=== PATIENT | female | born 1965 | race Hispanic/Latino ===

== ENCOUNTER 2017-11-20 11:33 | Emergency (ER) | payer OTHER ==
[2017-11-20 12:18] LABS: Urine Blood NEGATIVE (NEG); Urine Glucose NEGATIVE (NEG); Urine Protein NEGATIVE (NEG); Urine pH 5.5 (5.0-7.0)
[2017-11-20 12:31] LABS: Absolute Lymphocytes (CBC) 3.4 K/uL (0.7-4.9); Absolute Monocytes 0.7 K/uL (0.1-1.3); Absolute Neutrophil 5.2 K/uL (1.8-8.0); Basophils % 0.7 % (0-1.3); Eosinophils % 1.8 % (0-4.4); Hematocrit 39.8 % (36.0-45.0); Lymphocytes % 35.8 % (15.3-44.8); MCH 30.6 pg (27.0-35.0); MCV 88.4 fL (80-100); MPV 8.4 fL (7.6-11.3); Monocytes % 7.2 % (3.3-12.3)
[2017-11-20 12:47] LABS: ALT/SGPT 31 U/L (12-78); AST/SGOT 22 U/L (15-37); Albumin 3.4 g/dL (3.4-5.0); Alkaline Phosphatase 107 U/L (45-117); Amylase Level 40 U/L (25-115); BUN Blood Urea Nitrogen 4 mg/dL (7-18); Bicarbonate 28 mmol/L (21-32); Bilirubin Direct 0.2 mg/dL (0-0.2); Bilirubin Total 0.7 mg/dL (0.2-1.0); Glucose Level 170 mg/dL (74-106); Lipase 122 U/L (73-393); Protein, Total 7.1 g/dL (6.4-8.2); Sodium Level 140 mmol/L (136-145)
--- NOTE | 2017-11-20 13:28 | RAD REPORT ---
EXAM DESCRIPTION: CTAbdomen Pelvis W Contrast - 11/20/2017 1:18 pm CLINICAL HISTORY: Abdominal pain. IV ONLY, Left Sided Abdominal Pain COMPARISON: Abdomen Pelvis W Contrast dated 09/06/2016; CT ABD PELVIS W CONTRAST dated 05/15/2008 TECHNIQUE: Biphasic CT imaging of the abdomen and pelvis was performed with 100 ml non-ionic IV cont rast. All CT scans are performed using dose optimization technique as appropriate and may include automated exposure control or mA/KV adjustment according to patient size. FINDINGS: The lung bases are clear.Cholecystectomy clips. The liver, spleen, pancreas, adrenal glands and kidneys are within normal limits. No bowel obstruction, free air, free fluid or abscess. The appendix is normal. No evidence of signi ficant lymphadenopathy. No suspicious bony findings. 25 mm left ovarian follicle noted. IMPRESSION: No acute intra-abdominal or pelvic finding.
[2017-11-20 13:32] LABS: Urine Bacteria >50 /HPF (<20); Urine Culture Reflex Order REFLEXED; Urine RBC <5 /HPF (NONE SEEN)
[2017-11-20] MEDS ORDERED: METOCLOPRAMIDE 10 MG/2mL INJ ONE (14:09)
[2017-11-20] MEDS ORDERED: NA CHLORIDE 0.9% 250 ML ONE (14:09)
--- NOTE | 2017-11-20 14:36 | EDPHYS ---
Physician Documentation [facility] Name: Kirsty Montaño Age: 52 yrs Sex: Female : 1965 Arrival Date: 11/20/2017 Time: 11:36 Bed 19 Private MD: Humberto Green B ED Physician Talib Castro HPI: 11/20 13:14 This 52 yrs old Female presents to ER via Ambulatory with complaints of jmm Abdominal Swelling. 13:14 The patient presents with abdominal pain in the left upper quadrant. Onset: The jmm symptoms/episode began/occurred gradually. The symptoms do not radiate. Associated signs and symptoms: Pertinent positives: diarrhea. This is a 52 year old female with a history of DM, HTN, that presents to the ED with LUQ discomfort beginning after the patient stated she drank a large amount of water. Patient denies vomiting but states that she has ongoing diarrhea she attributes to metformin. Patient denies fever, recent abx use or recent travel. . 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 - Social history:: Smoking status: Patient/guardian denies using tobacco. - Ebola Screening: : Patient negative for fever greater than or equal to 101.5 degrees Fahrenheit, and additional compatible Ebola Virus Disease symptoms Patient denies exposure to infectious person Patient denies travel to an Ebola-affected area in the 21 days before illness onset No symptoms or risks identified at this time. ROS: 13:20 Constitutional: Negative for fever, chills, and weight loss, Cardiovascular: Negative jmm for chest pain, palpitations, and edema, Respiratory: Negative for shortness of breath, cough, wheezing, and pleuritic chest pain. 13:20 Back: Negative for injury and pain, : Negative for injury, bleeding, discharge, and swelling, MS/Extremity: Negative for injury and deformity, Skin: Negative for injury, rash, and discoloration, Neuro: Negative for headache, weakness, numbness, tingling, and seizure. 13:20 Abdomen/GI: Positive for abdominal pain, diarrhea. 13:20 All other systems are negative. Exam: 13:20 Head/Face: atraumatic. Chest/axilla: Normal chest wall appearance and motion. [facility] Cardiovascular: Regular rate and rhythm. No edema appreciated Respiratory: Normal respirations, no respiratory distress appreciated 13:20 Constitutional: The patient appears in no acute distress, alert, awake. 13:20 Abdomen/GI: Inspection: abdomen appears normal, Bowel sounds: normal, Palpation: soft, in the left upper quadrant. 13:20 Back: ROM is normal. 13:20 Musculoskeletal/extremity: ROM: intact in all extremities. 13:20 Skin: Appearance: Color: normal in color. 13:20 Neuro: Orientation: is normal, Mentation: is normal, Memory: is normal. 13:20 Psych: Behavior/mood is pleasant, cooperative. Vital Signs: 11:52 BP 155 / 73; Pulse 77; Resp 16; Temp 98.8(O); Pulse Ox 99% on R/A; Weight 79.83 kg; em Height 5 ft. 5 in. (165.10 cm); Pain 0/10; 13:30 BP 131 / 66; Pulse 73; Resp 16; Pulse Ox 97% on R/A; Pain 0/10; em 14:30 BP 139 / 76; Pulse 73; Resp 18; Pulse Ox 97% on R/A; Pain 0/10; em 11:52 Body Mass Index 29.29 (79.83 kg, 165.10 cm) em MDM: 11:47 Patient medically screened. [facility] 14:28 Data reviewed: vital signs, nurses notes. Counseling: I had a detailed discussion with [facility] the patient and/or guardian regarding: the historical points, exam findings, and any diagnostic results supporting the discharge/admit diagnosis, lab results, radiology results, to return to the emergency department if symptoms worsen or persist or if there are any questions or concerns that arise at home. 14:28 ED course: Due to the patient's history of gastric ulcers, is encouraged to follow up [facility] with GI due to concerns. Patient given return precautions. patient understood and agrees with the plan of care. . 11/20 11:49 Order name: Amylase, Serum; Complete Time: 13:34 [facility] 11/20 11:49 Order name: Basic Metabolic Panel; Complete Time: 13:34 [facility] 11/20 11:49 Order name: CBC with Diff; Complete Time: 13:34 [facility] 11/20 11:49 Order name: Creatinine for Radiology; Complete Time: 13:34 [facility] 11/20 11:49 Order name: Hepatic Function; Complete Time: 13:34 [facility] 11/20 11:49 Order name: Lipase; Complete Time: 13:34 [facility] 11/20 11:49 Order name: Urine Microscopic Only; Complete Time: 13:34 [facility] 11/20 11:50 Order name: Troponin (emerg Dept Use Only); Complete Time: 13:34 [facility] 11/20 12:00 Order name: CT Abd/Pelvis - W/Contrast; Complete Time: 13:34 [facility] 11/20 12:02 Order name: CPK; Complete Time: 13:34 [facility] 11/20 12:15 Order name: Urine Dipstick--Ancillary (enter results) 11/20 12:16 Order name: Urine Dipstick-Ancillary; Complete Time: 13:34 [facility] 11/20 13:34 Order name: Urine Culture [facility] 11/20 11:49 Order name: IV Saline Lock; Complete Time: 12:13 [facility] 11/20 11:49 Order name: Labs collected and sent; Complete Time: 12:14 [facility] 11/20 11:49 Order name: Urine Dipstick-Ancillary (obtain specimen); Complete Time: 12:07 [facility] 11/20 11:50 Order name: EKG - Nurse/Tech; Complete Time: 12:13 [facility] 11/20 13:18 Order name: EKG Electrocardiogram [facility] Administered Medications: 14:16 Drug: Reglan 10 mg Route: IVP; Site: right antecubital; iw 15:12 Follow up: Response: No adverse reaction em 14:16 Drug: NS 0.9% 250 ml Route: IV; Rate: bolus; Site: right antecubital; iw 15:12 Follow up: IV Status: Completed infusion; IV Intake: 250ml em Disposition: 11/20/17 14:35 Discharged to Home. Impression: Other abdominal pain, Urinary tract infection, site not specified. - Condition is Stable. - Discharge Instructions: Abdominal Pain, Adult, Urinary Tract Infection, Adult. - Prescriptions for Cephalexin 500 mg Oral Capsule - take 1 capsule by ORAL route every 12 hours for 10 days; 20 capsule. - Medication Reconciliation Form, Thank You Letter, Antibiotic Education, Prescription Opioid Use, Work release form form. - Follow up: Humberto Green MD; When: 2 - 3 days; Reason: Continuance of care. Addendum: 11/23/2017 10:20 Co-signature as Attending Physician, Talib Castro MD I agree with the assessment and c ramos plan of care. Signatures: Dispatcher [employer] Talib Ashford MD MD cha Mickail, Joel, PA PA dallasm Carlo Bowen, PLASTER APPLICATOR PLASTER APPLICATOR em Elaine Schmitz, AKUA RN iw Corrections: (The following items were deleted from the chart) 11/20 15:24 14:35 11/20/2017 14:35 Discharged to Home. Impression: Other abdominal pain; Urinary em tract infection, site not specified. Condition is Stable. Forms are Medication Reconciliation Form, Thank You Letter, Antibiotic Education, Prescription Opioid Use. Follow up: Humberto Green; When: 2 - 3 days; Reason: Continuance of care. davide
--- NOTE | 2017-11-20 14:36 | ER ---
Nurse's Notes [facility] Name: Kirsty Montaño Age: 52 yrs Sex: Female : 1965 Arrival Date: 11/20/2017 Time: 11:36 Bed 19 Private MD: Humberto Green B Diagnosis: Other abdominal pain;Urinary tract infection, site not specified Presentation: 11/20 11:48 Presenting complaint: Patient states: left sided abdominal swelling that started Thursday em with intermittent pain, + nausea, denies fever, vomiting and diarrhea, currently denies pain. Transition of care: patient was not received from another setting of care. Onset of symptoms was November 14, 2017. Risk Assessment: Do you want to hurt yourself or someone else? Patient reports no desire to harm self or others. Initial Sepsis Screen: Does the patient meet any 2 criteria? No. Patient's initial sepsis screen is negative. Does the patient have a suspected source of infection? No. Patient's initial sepsis screen is negative. Care prior to arrival: None. 11:48 Method Of Arrival: Ambulatory em 11:48 Acuity: ALYCIA 3 iw Triage Assessment: 11:52 General: Appears in no apparent distress. comfortable, Behavior is calm, cooperative. em Pain: Denies pain. GI: Abdomen is round non-distended, Reports nausea, Patient currently denies vomiting. 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 - Social history:: Smoking status: Patient/guardian denies using tobacco. - Ebola Screening: : Patient negative for fever greater than or equal to 101.5 degrees Fahrenheit, and additional compatible Ebola Virus Disease symptoms Patient denies exposure to infectious person Patient denies travel to an Ebola-affected area in the 21 days before illness onset No symptoms or risks identified at this time. Screenin:53 Abuse screen: Denies threats or abuse. Nutritional screening: No deficits noted. em Tuberculosis screening: No symptoms or risk factors identified. Fall Risk None identified. Assessment: 11:50 General: Appears in no apparent distress. comfortable, Behavior is calm, cooperative, em Denies fever. Pain: Denies pain. Neuro: Level of Consciousness is awake, alert, obeys commands, Oriented to person, place, time, situation. Cardiovascular: Capillary refill < 3 seconds Patient's skin is warm and dry. Respiratory: Airway is patent Respiratory effort is even, unlabored, Respiratory pattern is regular, symmetrical. GI: Abdomen is round non-distended, Bowel sounds present X 4 quads. Abd is soft and non tender X 4 quads. Reports bloating, nausea, Patient currently denies diarrhea, vomiting. : Urine is clear. EENT: No signs and/or symptoms were reported regarding the EENT system. Derm: Skin is intact, Skin is pink, warm \T\ dry. Musculoskeletal: Range of motion: intact in all extremities. 12:00 Reassessment: Patient appears in no apparent distress at this time. I agree with above iw assessment by Carlo Bowen LVN. 12:50 Reassessment: Patient appears in no apparent distress at this time. Patient and/or em family updated on plan of care and expected duration. Pain level reassessed. Patient is alert, oriented x 3, equal unlabored respirations, skin warm/dry/pink. Patient denies pain at this time. 13:29 Reassessment: returned from CT, denies pain. em 14:45 Reassessment: Patient appears in no apparent distress at this time. Patient and/or em family updated on plan of care and expected duration. Pain level reassessed. Patient is alert, oriented x 3, equal unlabored respirations, skin warm/dry/pink. warm blanket given. Vital Signs: 11:52 BP 155 / 73; Pulse 77; Resp 16; Temp 98.8(O); Pulse Ox 99% on R/A; Weight 79.83 kg; em Height 5 ft. 5 in. (165.10 cm); Pain 0/10; 13:30 BP 131 / 66; Pulse 73; Resp 16; Pulse Ox 97% on R/A; Pain 0/10; em 14:30 BP 139 / 76; Pulse 73; Resp 18; Pulse Ox 97% on R/A; Pain 0/10; em 11:52 Body Mass Index 29.29 (79.83 kg, 165.10 cm) em ED Course: 11:36 Patient arrived in ED. as 11:36 Humberto Green MD is Private Physician. as 11:42 Ray Romero PA is [facility]. [facility] 11:42 Talib Castro MD is Attending Physician. [facility] 11:47 Carlo Bowen LVN is Primary Nurse. em 11:53 Arm band placed on. em 11:53 Patient has correct armband on for positive identification. Placed in gown. Bed in low em position. Call light in reach. Adult w/ patient. Pulse ox on. NIBP on. 12:08 Triage completed. iw 12:08 Initial lab(s) drawn, by ky, sent to lab. 3 12:18 Inserted saline lock: 20 gauge in right antecubital area, using aseptic technique. 3 Blood collected. 12:23 EKG done, by test tech. reviewed by Ray VALVERDE. at1 13:[address] sw 13:16 Note: PT ADVISED TO WITH HOLD METFORMIN FOR THE NEXT 48 HOURS AFTER IODINE INJECTION sw FOR CAT SCAN. 13:16 CT completed. Patient tolerated procedure well. Patient moved back from CT. sw 13:18 CT Abd/Pelvis - W/Contrast In Process Unspecified. EDMS 14:35 Humberto Green MD is Referral Physician. [facility] 15:20 No provider procedures requiring assistance completed. IV discontinued, intact, em bleeding controlled, No redness/swelling at site. Pressure dressing applied. Administered Medications: 14:16 Drug: Reglan 10 mg Route: IVP; Site: right antecubital; iw 15:12 Follow up: Response: No adverse reaction em 14:16 Drug: NS 0.9% 250 ml Route: IV; Rate: bolus; Site: right antecubital; iw 15:12 Follow up: IV Status: Completed infusion; IV Intake: 250ml em Intake: 15:12 IV: 250ml; Total: 250ml. em Outcome: 14:35 Discharge ordered by MD. jmm 15:20 Discharged to home ambulatory, with family. em 15:20 Condition: good 15:20 Discharge instructions given to patient, family, Instructed on discharge instructions, follow up and referral plans. medication usage, Demonstrated understanding of instructions, follow-up care, medications, Prescriptions given X 1. 15:24 Patient left the ED. em Signatures: Dispatcher [employer] EDMS Ray Romero PA PA jmm Munoz, Edgar, THERMOMETER PRODUCTION WORKER THERMOMETER PRODUCTION WORKER em Robert, Juanis as Elaine Schmitz, AKUA FATIMA iw Amairani crowe, geological drafter EKG Tat1 Lisa Meredith, Cady 3 Corrections: (The following items were deleted from the chart) 13:24 General: Appears in no apparent distress. comfortable, Behavior is calm, em cooperative, Denies fever, em 13:24 Pain: Denies pain. em em 13:24 Neuro: Level of Consciousness is awake, alert, obeys commands, Oriented to em person, place, time, situation, em 13:24 Cardiovascular: Capillary refill < 3 seconds Patient's skin is warm and dry. em em 13:24 Respiratory: Airway is patent Respiratory effort is even, unlabored, Respiratory em pattern is regular, symmetrical, em 13:24 GI: Abdomen is round non-distended, Bowel sounds present X 4 quads. Abd is soft em and non tender X 4 quads. Reports bloating, nausea, Patient currently denies diarrhea, vomiting, em 13:24 : Urine is clear, em em 13:24 EENT: No signs and/or symptoms were reported regarding the EENT system. em em 13:24 Derm: Skin is intact, Skin is pink, warm \T\ dry. em em 13:24 Musculoskeletal: Range of motion: intact in all extremities, em em
[2017-11-20 15:38] VITALS: O2SAT 97
[2017-11-20 15:39] VITALS: TEMP 98.8
[2017-11-20 15:41] VITALS: BP 139/76
--- NOTE | 2017-11-20 18:08 | EKG ---
Test Date: 2017-11-20 Test Time: 12:14:49 Data Entry Email Processor: BRENDA MEASUREMENT RESULTS: Intervals: Rate: 76 IN: 170 QRSD: 86 QT: 408 QTc: 459 [place]: P: 27 IN: 170 QRS: 21 T: 32 INTERPRETIVE STATEMENTS: Normal sinus rhythm Normal ECG Compared to ECG 02/26/2016 19:04:05 Myocardial infarct finding no longer present Electronically Signed On 11-20-17 18:06:49 CDT by Pratik Avila
== END 2017-11-20 15:24 | disposition home or self-care (01) ==
LOC: ER 11:33
DX: R10.9 Unspecified abdominal pain (principal); N39.0 Urinary tract infection, site not specified; E11.9 Type 2 diabetes mellitus without complications; I10 Essential (primary) hypertension; E78.00 Pure hypercholesterolemia, unspecified
CPT/HCPCS: 36415; 74177; 80048; 80076; 81003; 81015; 82150; 82550; 83690; 84484; 85025; 87086; 87088; 93005; 96361; 96365; 96374; 96375; 99284; J2765; Q9967

== ENCOUNTER 2018-05-08 13:11 | Emergency (ER) | payer OTHER ==
--- NOTE | 2018-05-08 14:07 | RAD REPORT ---
EXAM DESCRIPTION: CT - Stone Protocol - 05/08/2018 1:47 pm CLINICAL HISTORY: Left flank pain, left lower quadrant pain COMPARISON: CT October 2017 TECHNIQUE: Axial 5 mm thick images were obtained without oral or IV contrast. The [id number] span s the entirety of the system including uppermost abdomen and lung bases. All CT scans are performed using dose optimization technique as appropriate and may include automated exposure control or mA/KV adjustment according to patient size. FINDINGS: No hydronephrosis is present and no obstructing ureteral calculi. No suspicious renal mass es. Isodense masses and pyelonephritis are not excluded on a stone protocol CT scan. No urinary bladd er suspicious finding. No significant adrenal finding. Numerous phleboliths are present along the pel janeen floor none of which appear to be ureteral calculi. Imaged portions of the liver, spleen and pancreas show no suspicious findings on non-contrast imaging . Cholecystectomy clips are present. No biliary tree dilatation. No suspicious bowel findings. Appendix is normal. No hernia, mass or bulky lymphadenopathy noted. No free air, free fluid or inflammatory stranding. No significant bony abnormality. IMPRESSION: Noncontrast CT abdomen and pelvis imaging shows no significant or suspicious finding. No acute finding identifiable. Isodense masses and pyelonephritis are not excluded on stone protocol technique.
[2018-05-08] MEDS ORDERED: NA CHLORIDE 0.9% 1,000 ML ONE (14:29)
[2018-05-08] MEDS ORDERED: ONDANSETRON 4 MG/2 ML VIAL ONE (14:29)
[2018-05-08 14:33] LABS: Absolute Lymphocytes (CBC) 2.6 K/uL (0.7-4.9); Absolute Monocytes 0.6 K/uL (0.1-1.3); Absolute Neutrophil 5.2 K/uL (1.8-8.0); Basophils % 0.5 % (0-1.3); Eosinophils % 1.1 % (0-4.4); Hematocrit 38.9 % (36.0-45.0); Lymphocytes % 30.8 % (15.3-44.8); MPV 8.5 fL (7.6-11.3); Monocytes % 7.3 % (3.3-12.3); RBC Red Blood Cell Count 4.44 M/uL (3.86-4.86)
[2018-05-08 14:44] LABS: Urine Bacteria 20-50 /HPF (<20); Urine RBC <5 /HPF (NONE SEEN)
[2018-05-08 14:45] LABS: Urine Culture Reflex Order REFLEXED
[2018-05-08 14:57] LABS: Potassium 4.1 mmol/L (3.5-5.1)
--- NOTE | 2018-05-08 15:18 | ER ---
Nurse's Notes [facility] Name: Kirsty Montaño Age: 52 yrs Sex: Female : 1965 Arrival Date: 05/08/2018 Time: 13:15 Bed 16 Private MD: Humberto Green B Diagnosis: Lower abdominal pain, unspecified;Other ovarian cysts Presentation: 05/08 13:18 Presenting complaint: Patient states: LLQ pain that radiates to the left lower back, sv c/o nausea, diarrhea started 2 days ago. Transition of care: patient was not received from another setting of care. Onset of symptoms was May 06, 2018. Care prior to arrival: None. 13:18 Method Of Arrival: Ambulatory sv 13:18 Acuity: ALYCIA 3 sv 13:40 Initial Sepsis Screen: Does the patient meet any 2 criteria? No. Patient's initial rb1 sepsis screen is negative. Does the patient have a suspected source of infection? No. Patient's initial sepsis screen is negative. 14:32 Risk Assessment: Do you want to hurt yourself or someone else?. rb1 Triage Assessment: 13:19 General: Appears in no apparent distress. uncomfortable, Behavior is calm, cooperative, sv appropriate for age. Pain: Complains of pain in left lower quadrant Pain radiates to left low back Pain currently is 5 out of 10 on a pain scale. Neuro: Level of Consciousness is awake, alert, obeys commands, Oriented to person, place, time, situation, Moves all extremities. Full function. Respiratory: Respiratory effort is even, unlabored, Respiratory pattern is regular, symmetrical. GI: Reports lower abdominal pain, diarrhea, nausea. 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 - Social history:: Smoking status: Patient/guardian denies using tobacco. - Ebola Screening: : No symptoms or risks identified at this time. Screenin:10 Abuse screen: Denies threats or abuse. Nutritional screening: No deficits noted. rb1 Tuberculosis screening: No symptoms or risk factors identified. Fall Risk None identified. Assessment: 14:10 General: Appears in no apparent distress. comfortable, Behavior is calm, cooperative, rb1 Reports chills for Denies fever. Pain: Complains of pain in left lower quadrant and bodyaches Pain currently is 5 out of 10 on a pain scale. Pain began 2-3 days ago. Neuro: Level of Consciousness is awake, alert, obeys commands, Oriented to person, place, time, situation. Cardiovascular: Capillary refill < 3 seconds is brisk in bilateral fingers. Respiratory: Airway is patent Respiratory effort is even, unlabored, Respiratory pattern is regular, symmetrical. GI: Bowel sounds present X 4 quads. Abd is soft X 4 quads Reports diarrhea, nausea. : No signs and/or symptoms were reported regarding the genitourinary system. Derm: Skin is dry, Skin is normal, Skin temperature is warm. 14:10 Pain: Pain radiates to left low back. Musculoskeletal: Range of motion: intact in all rb1 extremities. 15:10 Reassessment: Patient appears in no apparent distress at this time. No changes from rb1 previously documented assessment. Vital Signs: 13:19 BP 140 / 70; Pulse 73; Resp 18; Temp 98.2; Pulse Ox 98% ; Weight 81.65 kg; Height 5 ft. sv 5 in. (165.10 cm); Pain 5/10; 14:15 BP 104 / 87; Pulse 67; Resp 17; Pulse Ox 96% on R/A; Pain 5/10; rb1 15:15 BP 137 / 72; Pulse 67; Resp 17; Pulse Ox 98% on R/A; rb1 13:19 Body Mass Index 29.95 (81.65 kg, 165.10 cm) sv ED Course: 13:15 Patient arrived in ED. dl4 13:15 Humberto Green MD is Private Physician. dl4 13:19 Triage completed. sv 13:19 Arm band placed on Patient placed in an exam room, on a stretcher. sv 13:20 Suze Wu FNP-C is PHCP. kb 13:20 Trenton Rodriguez MD is Attending Physician. kb 13:47 CT completed. Patient moved to CT via wheelchair. Patient moved back from CT. bq 13:48 CT Stone Protocol In Process Unspecified. EDMS 13:54 Yolanda French, RN is Primary Nurse. rb1 14:10 Patient has correct armband on for positive identification. Bed in low position. Call rb1 light in reach. Side rails up X 1. Pulse ox on. NIBP on. Warm blanket given. 14:15 Inserted saline lock: 22 gauge in right antecubital area, using aseptic technique. rb1 Blood collected. 15:40 No provider procedures requiring assistance completed. IV discontinued, intact, rb1 bleeding controlled, No redness/swelling at site. Pressure dressing applied. Administered Medications: 14:20 Drug: NS 0.9% 1000 ml Route: IV; Rate: 1000 ml; Site: right antecubital; rb1 15:20 Follow up: IV Status: Completed infusion rb1 14:20 Drug: Zofran 4 mg Route: IVP; Site: right antecubital; rb1 14:35 Follow up: Response: No adverse reaction; Nausea is decreased rb1 Outcome: 15:18 Discharge ordered by MD. kb 15:40 Discharged to home ambulatory. rb1 15:40 Condition: stable 15:40 Discharge instructions given to patient, Instructed on discharge instructions, follow up and referral plans. medication usage, Demonstrated understanding of instructions, follow-up care, medications, Prescriptions given X 2. 15:42 Patient left the ED. rb1 Signatures: Dispatcher [employer] EDMA Suze Wu, ELEAZAR SAP ADMINISTRATOR-Evelyn Leggett RN RN sv Quilty, Betty Yolanda French, RN RN rb1 Neeraj Do dl4 Corrections: (The following items were deleted from the chart) 14:30 14:10 GI: Bowel sounds present X 4 quads. Abd is soft X 4 quads Reports diarrhea, rb1 nausea, rb1
--- NOTE | 2018-05-08 15:19 | EDPHYS ---
Physician Documentation [facility] Name: Kirsty Montaño Age: 52 yrs Sex: Female : 1965 Arrival Date: 05/08/2018 Time: 13:15 Bed 16 Private MD: Humberto Green B ED Physician Trentno Rodriguez HPI: 05/08 13:56 This 52 yrs old Female presents to ER via Ambulatory with complaints of kb Abdominal Pain. 13:56 The patient presents with abdominal pain in the left lower quadrant. The symptoms kb radiate to the left flank. 14:04 Onset: The symptoms/episode began/occurred 2 day(s) ago. Associated signs and symptoms: kb Pertinent positives: diarrhea, nausea. The symptoms are described as burning, constant. Modifying factors: The symptoms are alleviated by nothing, the symptoms are aggravated by pressure. Severity of pain: At its worst the pain was moderate in the emergency department the pain is unchanged. The patient has not experienced similar symptoms in the past. The patient has not recently seen a physician. 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 - Social history:: Smoking status: Patient/guardian denies using tobacco. - Ebola Screening: : No symptoms or risks identified at this time. ROS: 13:54 Constitutional: Negative for fever, chills, and weight loss, Cardiovascular: Negative kb for chest pain, palpitations, and edema, Respiratory: Negative for shortness of breath, cough, wheezing, and pleuritic chest pain, : Negative for injury, bleeding, discharge, and swelling, MS/Extremity: Negative for injury and deformity, Skin: Negative for injury, rash, and discoloration, Neuro: Negative for headache, weakness, numbness, tingling, and seizure. 13:54 Abdomen/GI: Positive for abdominal pain, nausea, diarrhea. 13:54 Back: Positive for flank pain, on the left. Exam: 13:54 Constitutional: This is a well developed, well nourished patient who is awake, alert, kb and in no acute distress. Head/Face: Normocephalic, atraumatic. Chest/axilla: Normal chest wall appearance and motion. Nontender with no deformity. No lesions are appreciated. Cardiovascular: Regular rate and rhythm with a normal S1 and S2. No gallops, murmurs, or rubs. Normal PMI, no JVD. No pulse deficits. Respiratory: Lungs have equal breath sounds bilaterally, clear to auscultation and percussion. No rales, rhonchi or wheezes noted. No increased work of breathing, no retractions or nasal flaring. Back: No spinal tenderness. No costovertebral tenderness. Full range of motion. Skin: Warm, dry with normal turgor. Normal color with no rashes, no lesions, and no evidence of cellulitis. MS/ Extremity: Pulses equal, no cyanosis. Neurovascular intact. Full, normal range of motion. Neuro: Awake and alert, GCS 15, oriented to person, place, time, and situation. Cranial nerves II-XII grossly intact. Motor strength 5/5 in all extremities. Sensory grossly intact. Cerebellar exam normal. Normal gait. 13:54 Abdomen/GI: Inspection: abdomen appears normal, Bowel sounds: normal, Palpation: soft, in all quadrants, moderate abdominal tenderness, in the left lower quadrant. Vital Signs: 13:19 BP 140 / 70; Pulse 73; Resp 18; Temp 98.2; Pulse Ox 98% ; Weight 81.65 kg; Height 5 ft. sv 5 in. (165.10 cm); Pain 5/10; 14:15 BP 104 / 87; Pulse 67; Resp 17; Pulse Ox 96% on R/A; Pain 5/10; rb1 15:15 BP 137 / 72; Pulse 67; Resp 17; Pulse Ox 98% on R/A; rb1 13:19 Body Mass Index 29.95 (81.65 kg, 165.10 cm) sv MDM: 13:20 Patient medically screened. kb 13:56 Data reviewed: vital signs, nurses notes. Data interpreted: Pulse oximetry: on room air kb is 98 %. Interpretation: normal. 15:11 Counseling: I had a detailed discussion with the patient and/or guardian regarding: the kb historical points, exam findings, and any diagnostic results supporting the discharge/admit diagnosis, lab results, radiology results, the need for outpatient follow up, a family practitioner, to return to the emergency department if symptoms worsen or persist or if there are any questions or concerns that arise at home. 05/08 13:32 Order name: Basic Metabolic Panel; Complete Time: 15:11 kb 05/08 13:32 Order name: CBC with Diff; Complete Time: 14:38 kb 05/08 13:32 Order name: Urine Microscopic Only; Complete Time: 15:11 kb 05/08 13:32 Order name: Flu; Complete Time: 15:11 kb 05/08 14:19 Order name: Urine Dipstick--Ancillary (enter results) bd 05/08 14:46 Order name: Urine Culture EDMS 05/08 13:32 Order name: IV Saline Lock; Complete Time: 14:17 kb 05/08 13:32 Order name: Labs collected and sent; Complete Time: 14:17 kb 05/08 13:32 Order name: Urine Dipstick-Ancillary (obtain specimen); Complete Time: 14:17 kb 05/08 13:32 Order name: CT Stone Protocol; Complete Time: 14:24 kb Administered Medications: 14:20 Drug: NS 0.9% 1000 ml Route: IV; Rate: 1000 ml; Site: right antecubital; rb1 15:20 Follow up: IV Status: Completed infusion rb1 14:20 Drug: Zofran 4 mg Route: IVP; Site: right antecubital; rb1 14:35 Follow up: Response: No adverse reaction; Nausea is decreased rb1 Disposition: 17:30 Co-signature as Attending Physician, Trenton Rodriguez MD. Disposition: 05/08/18 15:18 Discharged to Home. Impression: Lower abdominal pain, unspecified, Other ovarian cysts. - Condition is Stable. - Discharge Instructions: Abdominal Pain, Adult, [id number], Ovarian Cyst, [id number]. - Prescriptions for Zofran 4 mg Oral Tablet - take 1 tablet by ORAL route every 6 hours As needed; 20 tablet. Diclofenac Sodium 75 mg Oral Tablet, Delayed Release (E.C.) - take 1 tablet by ORAL route 2 times per day As needed; 30 tablet. - Medication Reconciliation Form, Thank You Letter, Antibiotic Education, Prescription Opioid Use, Work release form form. - Follow up: Emergency Department; When: As needed; Reason: Worsening of condition. Follow up: Private Physician; When: 2 - 3 days; Reason: Recheck today's complaints, Continuance of care, Re-evaluation by your physician. Signatures: Dispatcher [employer] EDPR Suze Wu, SVEN-Danay MACHUCA-Evelyn Leggett, RN RN sv Yolanda French, RN RN rb1 Trenton Rodriguez MD MD gs Corrections: (The following items were deleted from the chart) 15:42 15:18 05/08/2018 15:18 Discharged to Home. Impression: Lower abdominal pain, rb1 unspecified; Other ovarian cysts. Condition is Stable. Discharge Instructions: Abdominal Pain, Adult, [id number], Ovarian Cyst, [id number]. Prescriptions for Zofran 4 mg Oral Tablet - take 1 tablet by ORAL route every 6 hours As needed; 20 tablet, Diclofenac Sodium 75 mg Oral Tablet, Delayed Release (E.C.) - take 1 tablet by ORAL route 2 times per day As needed; 30 tablet. and Forms are Medication Reconciliation Form, Thank You Letter, Antibiotic Education, Prescription Opioid Use. Follow up: Emergency Department; When: As needed; Reason: Worsening of condition. Follow up: Private Physician; When: 2 - 3 days; Reason: Recheck today's complaints, Continuance of care, Re-evaluation by your physician. kb
[2018-05-08 15:50] VITALS: TEMP 98.2
[2018-05-08 15:53] VITALS: BP 137/72; O2SAT 98
[2018-05-08 19:00] LABS: Urine Blood NEGATIVE (NEG); Urine Glucose 2+ (NEG); Urine Protein 1+ (NEG); Urine Specific Gravity >1.030 (1.005-1.030)
== END 2018-05-08 15:42 | disposition home or self-care (01) ==
LOC: ER 13:11
DX: N83.299 Other ovarian cyst, unspecified side (principal); I10 Essential (primary) hypertension; E78.00 Pure hypercholesterolemia, unspecified; E11.9 Type 2 diabetes mellitus without complications
CPT/HCPCS: 36415; 74176; 76377; 80048; 81003; 81015; 85025; 87086; 87088; 87804; 96361; 96374; 99284; J2405; J7030

== ENCOUNTER 2018-08-05 18:11 | Emergency (ER) | payer OTHER ==
--- NOTE | 2018-08-05 19:45 | ER ---
Nurse's Notes [facility] Name: Kirsty Montaño Age: 53 yrs Sex: Female : 1965 Arrival Date: 08/05/2018 Time: 18:12 Bed Waiting Private MD: Diagnosis: Presentation: 08/05 18:15 Presenting complaint: Patient states: left flank pain started earlier today and now sv radiates to the left front side, burning with urination. Denies nausea. Transition of care: patient was not received from another setting of care. Onset of symptoms was August 05, 2018. Care prior to arrival: None. 18:15 Method Of Arrival: Ambulatory sv 18:15 Acuity: ALYCIA 3 sv Historical: - Allergies: 18:16 No Known Allergies; sv - PMHx: 18:16 Diabetes - NIDDM; High Cholesterol; Hypertension; sv - PSHx: 18:16 Cholecystectomy; Tubal ligation; sv Vital Signs: 18:16 BP 133 / 69; Pulse 84; Resp 18; Temp 98.2(O); Pulse Ox 95% ; Weight 74.84 kg; Height 5 sv ft. 5 in. (165.10 cm); Pain 4/10; 18:16 Body Mass Index 27.46 (74.84 kg, 165.10 cm) sv ED Course: 18:12 Patient arrived in ED. tw3 18:16 Triage completed. sv 18:16 Arm band placed on. sv 19:08 Edith Miller is Primary Nurse. cc3 19:09 Patient's name was called from ER lobby. No response. aj1 19:27 Patient's name was called from ER lobby. No response. aj1 19:44 Patient's name was called from ER lobby. No response. Unable to locate patient. Will aj1 disposition as left without being seen by a provider. Administered Medications: No medications were administered Outcome: 19:45 Patient left the ED. aj1 Signatures: Aracelis Long RN RN aj1 Verde, Stephanie, RN RN sv Wade, Tia tw3 Edith Miller cc3
[2018-08-05 19:54] VITALS: BP 133/69; TEMP 98.2; O2SAT 95
== END 2018-08-05 19:45 | disposition left against medical advice (07) ==
LOC: ER 18:11
DX: R10.9 Unspecified abdominal pain (principal); E11.9 Type 2 diabetes mellitus without complications; I10 Essential (primary) hypertension; E78.00 Pure hypercholesterolemia, unspecified; Z53.21 Procedure and treatment not carried out due to patient leaving prior to being seen by health care provider
CPT/HCPCS: 99281

== ENCOUNTER 2019-04-30 17:54 | Emergency (ER) | payer OTHER, SELFPAY ==
[2019-04-30 18:45] LABS: Absolute Lymphocytes (CBC) 3.3 K/uL (0.7-4.9); Basophils % 0.9 % (0-1.3); Hematocrit 39.8 % (36.0-45.0); Lymphocytes % 43.1 % (15.3-44.8); MPV 8.3 fL (7.6-11.3); RBC Red Blood Cell Count 4.49 M/uL (3.86-4.86)
[2019-04-30 18:53] LABS: Protime INR 0.91
[2019-04-30] MEDS ORDERED: ONDANSETRON 4 MG/2 ML VIAL ONE (18:53)
[2019-04-30] MEDS ORDERED: MORPHINE 4 MG/ML SYR ONE (18:53)
[2019-04-30 19:04] LABS: ALT/SGPT 21 U/L (12-78); AST/SGOT 12 U/L (15-37); Albumin 3.7 g/dL (3.4-5.0); Alkaline Phosphatase 108 U/L (45-117); BUN Blood Urea Nitrogen 9 mg/dL (7-18); Bicarbonate 28 mmol/L (21-32); Bilirubin Direct 0.2 mg/dL (0-0.2); Bilirubin Total 0.8 mg/dL (0.2-1.0); Glucose Level 240 mg/dL (74-106); Magnesium 2.1 mg/dL (1.8-2.4); NT PRO-BNP 95 pg/mL (<125); Potassium 4.1 mmol/L (3.5-5.1); Protein, Total 7.3 g/dL (6.4-8.2); Sodium Level 138 mmol/L (136-145); Troponin (Emerg Dept Use Only) < 0.02 ng/mL (0.0-0.045)
[2019-04-30 19:42] LABS: Urine Blood NEGATIVE (NEG); Urine Glucose 2+ (NEG); Urine Protein NEGATIVE (NEG); Urine Specific Gravity >1.030 (1.005-1.030)
--- NOTE | 2019-04-30 20:12 | RAD REPORT ---
EXAM DESCRIPTION: CT - Angio Aorta For Dissection - 04/30/2019 7:50 pm CLINICAL HISTORY: CHEST PAINchest pain, arm pain, abdominal pain COMPARISON: Chest film April 30, CT abdomen and pelvis May 08 2018 TECHNIQUE: Dynamically enhanced 3 mm thick images of the chest, abdomen, and upper pelvis were obtai chong during administration of approximately 150mL Isovue 370 IV contrast. Sagittal and coronal reconst ruction images were generated using MIP and reviewed. Exam utilizes a protocol to evaluate entire cou rse of the aorta. All CT scans are performed using dose optimization technique as appropriate and may include automated exposure control or mA/KV adjustment according to patient size. FINDINGS: Aorta is normal in diameter with no dissection or other acute aortic findings. Reconstruct ion images show no significant findings. Aortic arch is 3 vessel configuration. Great vessel and vert ebral artery origins are normal. Pulmonary arteries are normal as well. No cardiomegaly, pericardial thickening or pericardial effusio n. No mass or infiltrate in the lung parenchyma. No pleural thickening, pleural effusion or pneumothorax . No abnormal mediastinal or hilar mass or lymphadenopathy seen. No chest wall mass or abnormal axillar y lymphadenopathy. Celiac, SMA, inferior mesenteric and renal arteries show no suspicious findings. Solid abdominal visc era and bowel show no significant findings. Cholecystectomy clips are present. No biliary tree dilata tion. No mass or abnormal lymphadenopathy. No free air, free fluid or inflammatory stranding. No uri nary bladder abnormality. No uterine or right ovarian abnormality. Left ovary contains a 3 centimete r cyst. Prior study showed a similar size cyst. No cyst rupture or hemorrhage findings. No acute bone finding. IMPRESSION: Negative CT scan of the aorta. No other significant findings on chest, abdomen and pelvis examination. Nonacute findings detailed in the body of the report.
--- NOTE | 2019-04-30 20:38 | RAD REPORT ---
EXAM DESCRIPTION: RAD - Chest Single View - 04/30/2019 6:57 pm CLINICAL HISTORY: Chest pain COMPARISON: February 2016 TECHNIQUE: AP portable chest image was obtained 1854 hours . FINDINGS: Low lung volumes accentuates baseline interstitial pattern. No peripheral mass or consolid ation. Heart and vasculature are normal. No measurable pleural effusion and no pneumothorax. No acute bony abnormality seen. No acute aortic findings suspected. IMPRESSION: No acute cardiopulmonary process. No significant interval change.
--- NOTE | 2019-04-30 23:18 | ER ---
Nurse's Notes [facility] Name: Kirsty Montaño Age: 53 yrs Sex: Female : 1965 Arrival Date: 04/30/2019 Time: 17:56 Bed 16 Private MD: Humberto Green B Diagnosis: Chest pain, unspecified Presentation: 04/30 18:06 Presenting complaint: Patient states: L arm tightness x 3-4 days. Chest pain that began ss 1 hour ago, after work. Transition of care: patient was not received from another setting of care. Onset of symptoms was April 27, 2019. Risk Assessment: Do you want to hurt yourself or someone else? Patient reports no desire to harm self or others. Initial Sepsis Screen: Does the patient meet any 2 criteria? No. Patient's initial sepsis screen is negative. Does the patient have a suspected source of infection? No. Patient's initial sepsis screen is negative. Care prior to arrival: None. 18:06 Method Of Arrival: Ambulatory ss 18:06 Acuity: ALYCIA 3 ss Historical: - Allergies: 18:08 No Known Allergies; ss - PMHx: 18:08 Diabetes - NIDDM; High Cholesterol; Hypertension; ss - PSHx: 18:08 Tubal ligation; Cholecystectomy; ss - Immunization history:: Adult Immunizations up to date. - Social history:: Smoking status: Patient/guardian denies using tobacco. - Ebola Screening: : Patient denies exposure to infectious person Patient denies travel to an Ebola-affected area in the 21 days before illness onset. Screenin:10 Abuse screen: Denies threats or abuse. Denies injuries from another. Nutritional bp screening: No deficits noted. Tuberculosis screening: No symptoms or risk factors identified. Fall Risk None identified. Assessment: 18:10 General: SEE TRIAGE NOTE. Pain: Complains of pain in chest. Cardiovascular: Rhythm is bp regular. 19:00 Reassessment: Patient appears in no apparent distress at this time. Patient and/or sg family updated on plan of care and expected duration. Pain level reassessed. Patient is alert, oriented x 3, equal unlabored respirations, skin warm/dry/pink. Patient denies pain at this time. 20:00 Reassessment: Patient appears in no apparent distress at this time. Patient and/or sg family updated on plan of care and expected duration. Pain level reassessed. Patient is alert, oriented x 3, equal unlabored respirations, skin warm/dry/pink. 23:00 Reassessment: Patient appears in no apparent distress at this time. Patient and/or sg family updated on plan of care and expected duration. Pain level reassessed. Patient is alert, oriented x 3, equal unlabored respirations, skin warm/dry/pink. Patient states feeling better. Vital Signs: 18:08 BP 145 / 81; Pulse 74; Resp 17; Temp 97.2(TE); Pulse Ox 100% on R/A; Weight 77.11 kg; ss Height 5 ft. 5 in. (165.10 cm); Pain 6/10; 19:01 BP 148 / 71; Pulse 70; Resp 16; Pulse Ox 98% ; bp 23:00 BP 132 / 72; Pulse 74; Resp 17; Temp 97.2; Pulse Ox 100% on R/A; Pain 1/10; sg 18:08 Body Mass Index 28.29 (77.11 kg, 165.10 cm) ED Course: 17:56 Patient arrived in ED. mr 17:56 Humberto Green MD is Private Physician. mr 17:58 Viraj He NP is PHCP. pm1 17:58 Talib Castro MD is Attending Physician. pm1 18:00 Rajesh Nunes, AKUA is Primary Nurse. bp 18:08 Triage completed. ss 18:08 Arm band placed on right wrist. ss 18:32 Patient has correct armband on for positive identification. Placed in gown. Bed in low mh5 position. Call light in reach. Side rails up X 1. Adult w/ patient. Warm blanket given. supervising film or videotape editor on. Pulse ox on. NIBP on. 18:32 Initial lab(s) drawn, by mi, sent to lab. Urine collected: clean catch specimen, clear, 5 EKG done, by ED staff, reviewed by Viraj He NP. Inserted saline lock: 22 gauge in right antecubital area, using aseptic technique. 18:33 Troponin (emerg Dept Use Only) Sent. 5 18:33 Basic Metabolic Panel Sent. 5 18:33 CBC with Diff Sent. 5 18:33 LFT's Sent. 5 18:33 Magnesium Sent. mh5 18:33 NT PRO-BNP Sent. mh5 18:33 PT-INR Sent. mh5 18:57 XRAY Chest (1 view) In Process Unspecified. EDMS 19:11 Primary Nurse role handed off by Rajesh Nunes, RN 19:11 Philip Cortez, RN is Primary Nurse. sg 19:50 CT completed. Patient tolerated procedure well. Patient moved back from CT. bq 19:54 CT Aorta for Dissection In Process Unspecified. EDMS 22:30 Repeat lab(s) drawn. by mi, sent to lab. sg 23:20 No provider procedures requiring assistance completed. IV discontinued, intact, sg bleeding controlled, No redness/swelling at site. Pressure dressing applied. Patient maintains SpO2 saturation greater than 95% on room air. Administered Medications: 18:40 Drug: morphine 4 mg Route: IVP; Site: right antecubital; bp 18:40 Drug: Zofran 4 mg Route: IVP; Site: right antecubital; bp Outcome: 23:17 Discharge ordered by MD. pm1 23:20 Discharged to home ambulatory, with family. sg 23:20 Condition: good 23:20 Discharge instructions given to patient, family, Instructed on discharge instructions, follow up and referral plans. no drinking with medication, no driving heavy equipment, medication usage, Demonstrated understanding of instructions, follow-up care, medications, Prescriptions given X 2. 23:29 Patient left the ED. sg Signatures: Dispatcher [employer] EDNE Philip Cortez, AKUA FATIMA Ayan, Eneida Holt, Maryann Dionne Youngblood RN RN Viraj He, LIGHT TECHNICIAN LIGHT TECHNICIAN pm1 Jennifer Jones [facility] Rajesh Nunes, RN RN bp
--- NOTE | 2019-04-30 23:19 | EDPHYS ---
Physician Documentation [facility] Name: Kirsty Montaño Age: 53 yrs Sex: Female : 1965 Arrival Date: 04/30/2019 Time: 17:56 Bed 16 Private MD: Humberto Green B ED Physician Talib Castro HPI: 04/30 18:12 This 53 yrs old Female presents to ER via Ambulatory with complaints of Chest pm1 Pain. 18:12 The patient or guardian reports chest pain that is located primarily in the mid-sternal pm1 area. Onset: today, at 17:00. 18:12 Associated signs and symptoms: Pertinent positives: Constant left arm and shoulder pain pm1 for 3 days, Pertinent negatives: abdominal pain, cough, diaphoresis, dizziness, headache, nausea, shortness of breath, vomiting. The chest pain is described as sharp. Duration: The patient or guardian reports a single episode. Modifying factors: the symptoms are aggravated by deep breath, emotionally stressful situations, movement, bending forward. Severity of pain: in the emergency department the pain has improved is a 3 / 10 at worse 8/10. The patient has not experienced similar symptoms in the past. The patient has not recently seen a physician. 18:12 The pain radiates to back. pm1 Historical: - Allergies: 18:08 No Known Allergies; ss - PMHx: 18:08 Diabetes - NIDDM; High Cholesterol; Hypertension; ss - PSHx: 18:08 Tubal ligation; Cholecystectomy; ss - Immunization history:: Adult Immunizations up to date. - Social history:: Smoking status: Patient/guardian denies using tobacco. - Ebola Screening: : Patient denies exposure to infectious person Patient denies travel to an Ebola-affected area in the 21 days before illness onset. ROS: 18:12 Constitutional: Negative for fever, chills, and weight loss. pm1 18:12 Neck: Negative for injury, pain, and swelling, Respiratory: Negative for shortness of breath, cough, wheezing, and pleuritic chest pain, Abdomen/GI: Negative for abdominal pain, nausea, vomiting, diarrhea, and constipation, Back: Negative for injury and pain, MS/Extremity: Negative for injury and deformity, Skin: Negative for injury, rash, and discoloration, Neuro: Negative for headache, weakness, numbness, tingling, and seizure. 18:12 Cardiovascular: Positive for chest pain, Negative for edema, orthopnea, palpitations. 18:12 All other systems are negative. Exam: 18:12 Constitutional: This is a well developed, well nourished patient who is awake, alert, pm1 and in no acute distress. Head/Face: Normocephalic, atraumatic. Neck: Trachea midline, no thyromegaly or masses palpated, and no cervical lymphadenopathy. Supple, full range of motion without nuchal rigidity, or vertebral point tenderness. No Meningismus. 18:12 Cardiovascular: Regular rate and rhythm with a normal S1 and S2. No gallops, murmurs, or rubs. Normal PMI, no JVD. No pulse deficits. Respiratory: Lungs have equal breath sounds bilaterally, clear to auscultation and percussion. No rales, rhonchi or wheezes noted. No increased work of breathing, no retractions or nasal flaring. Abdomen/GI: Soft, non-tender, with normal bowel sounds. No distension or tympany. No guarding or rebound. No evidence of tenderness throughout. Back: No spinal tenderness. No costovertebral tenderness. Full range of motion. Skin: Warm, dry with normal turgor. Normal color with no rashes, no lesions, and no evidence of cellulitis. 18:12 Chest/axilla: Inspection: normal, Palpation: crepitus, is not appreciated, tenderness, of the mid-sternal area, that totally reproduces the patient's complaints, Pain reproduced with deep breathing on examination. 18:12 Musculoskeletal/extremity: Extremities: grossly normal except: left arm and shoulder pain reproduced with passively ROM with her left arm , Circulation is intact in all extremities. Sensation intact. 18:12 Neuro: Orientation: is normal, Motor: is normal, moves all fours, Sensation: is normal, no obvious gross deficits. Vital Signs: 18:08 BP 145 / 81; Pulse 74; Resp 17; Temp 97.2(TE); Pulse Ox 100% on R/A; Weight 77.11 kg; ss Height 5 ft. 5 in. (165.10 cm); Pain 6/10; 19:01 BP 148 / 71; Pulse 70; Resp 16; Pulse Ox 98% ; bp 23:00 BP 132 / 72; Pulse 74; Resp 17; Temp 97.2; Pulse Ox 100% on R/A; Pain 1/10; sg 18:08 Body Mass Index 28.29 (77.11 kg, 165.10 cm) ss MDM: 18:01 Patient medically screened. dionne 20:39 Data reviewed: vital signs. Data interpreted: Pulse oximetry: on room air is 98 %. pm1 Interpretation: normal. 23:01 JANAK Risk Score: TOTAL SCORE = 0. pm1 23:15 Counseling: I had a detailed discussion with the patient and/or guardian regarding: the pm1 historical points, exam findings, and any diagnostic results supporting the discharge/admit diagnosis, lab results, radiology results, the need for outpatient follow up, to return to the emergency department if symptoms worsen or persist or if there are any questions or concerns that arise at home. 04/30 18:11 Order name: Basic Metabolic Panel; Complete Time: 19:07 pm1 04/30 18:11 Order name: CBC with Diff; Complete Time: 18:59 pm1 04/30 18:11 Order name: LFT's; Complete Time: 19:07 pm04/30 18:11 Order name: Magnesium; Complete Time: 19:07 pm1 04/30 18:11 Order name: NT PRO-BNP; Complete Time: 19:07 pm1 04/30 18:11 Order name: PT-INR; Complete Time: 19:07 pm04/30 18:10 Order name: EKG; Complete Time: 18:10 ss 04/30 18:11 Order name: Troponin (emerg Dept Use Only); Complete Time: 19:07 pm1 04/30 18:11 Order name: XRAY Chest (1 view); Complete Time: 20:42 pm1 04/30 18:17 Order name: CT Aorta for Dissection; Complete Time: 20:24 pm1 04/30 19:29 Order name: Urine Dipstick--Ancillary (enter results); Complete Time: 20:01 cm6 04/30 20:25 Order name: Troponin (emerg Dept Use Only): Draw at 2230; Complete Time: 23:15 pm1 04/30 18:10 Order name: EKG - Nurse/Tech; Complete Time: 18:33 ss 04/30 18:11 Order name: Cardiac monitoring; Complete Time: 18:11 pm1 04/30 18:11 Order name: IV Saline Lock; Complete Time: 18:33 pm1 04/30 18:11 Order name: Labs collected and sent; Complete Time: 18:33 pm1 04/30 18:11 Order name: O2 Per Protocol; Complete Time: 18:11 pm1 04/30 18:11 Order name: O2 Sat Monitoring; Complete Time: 18:11 pm1 Administered Medications: 18:40 Drug: morphine 4 mg Route: IVP; Site: right antecubital; bp 18:40 Drug: Zofran 4 mg Route: IVP; Site: right antecubital; bp Disposition: 04/30/19 23:17 Discharged to Home. Impression: Chest pain, unspecified. - Condition is Stable. - Discharge Instructions: Nonspecific Chest Pain. - Prescriptions for Cyclobenzaprine 10 mg Oral Tablet - take 1 tablet by ORAL route every 8 hours As needed; 30 tablet. Diclofenac Sodium 75 mg Oral Tablet, Delayed Release (E.C.) - take 1 tablet by ORAL route 2 times per day As needed; 30 tablet. - Medication Reconciliation Form, Thank You Letter, Antibiotic Education, Prescription Opioid Use form. - Follow up: Emergency Department; When: As needed; Reason: Worsening of condition. Follow up: Private Physician; When: 2 - 3 days; Reason: Recheck today's complaints, Continuance of care, Re-evaluation by your physician. - Problem is new. - Symptoms have improved. Addendum: 05/02/2019 09:50 Co-signature as Attending Physician, Talib Castro MD I agree with the assessment and c ramos plan of care. Signatures: Dispatcher [employer] EDPhilip Thacker RN RN sg Anderson, Corey, MD MD cha Smirch, Shelby, RN RN ss Viraj He NP MAT TESTER pm1 Rajesh Nunes RN RN bp Corrections: (The following items were deleted from the chart) 04/30 23:29 23:17 04/30/2019 23:17 Discharged to Home. Impression: Chest pain, unspecified. Condition is Stable. Discharge Instructions: Nonspecific Chest Pain. Prescriptions for Cyclobenzaprine 10 mg Oral Tablet - take 1 tablet by ORAL route every 8 hours As needed; 30 tablet, Diclofenac Sodium 75 mg Oral Tablet, Delayed Release (E.C.) - take 1 tablet by ORAL route 2 times per day As needed; 30 tablet. and Forms are Medication Reconciliation Form, Thank You Letter, Antibiotic Education, Prescription Opioid Use. Follow up: Emergency Department; When: As needed; Reason: Worsening of condition. Follow up: Private Physician; When: 2 - 3 days; Reason: Recheck today's complaints, Continuance of care, Re-evaluation by your physician. Problem is new. Symptoms have improved. pm1
[2019-04-30 23:35] VITALS: TEMP 97.2
[2019-04-30 23:37] VITALS: BP 148/71; O2SAT 98
--- NOTE | 2019-05-01 12:48 | EKG ---
Test Date: 2019-04-30 Test Time: 18:18:07 District Recruiter: NGHIA MEASUREMENT RESULTS: Intervals: Rate: 71 CT: 162 QRSD: 84 QT: 420 QTc: 456 [place]: P: 20 CT: 162 QRS: 15 T: 21 INTERPRETIVE STATEMENTS: Normal sinus rhythm Normal ECG Compared to ECG 11/20/2017 12:14:49 No significant changes Electronically Signed On 05-01-19 12:47:35 LANDCARE FACILITATOR by Collin Perez
== END 2019-04-30 23:29 | disposition home or self-care (01) ==
LOC: ER 17:54
DX: R07.9 Chest pain, unspecified (principal); I10 Essential (primary) hypertension; E11.9 Type 2 diabetes mellitus without complications
CPT/HCPCS: 36415; 71045; 71275; 74175; 80048; 80076; 81003; 83735; 83880; 84484; 85025; 85610; 93005; 96374; 96375; 99285; J2405; Q9967

== ENCOUNTER 2020-07-26 21:43 | Emergency (ER) | payer BC, OTHER ==
--- OUTSIDE RECORDS SUMMARY | 2020-07-26 21:45 | XMS REPORT | Continuity of Care Document ---
:1965 Author Organization [facility] t Address [address] [place] [address] Care Team Providers Name Role Phone Lab, Fam Pob I Attending Clinician Unavailable Tre Witt MD Attending Clinician Problems This patient has no known problems. Allergies, Adverse Reactions, Alerts This patient has no known allergies or adverse reactions. Medications This patient has no known medications. Procedures This patient has no known procedures. Encounters Start End Encounter Admission Attending Care Care Encounter Source Date/Time Date/Time Type Type Clinicians Facility Department ID 2020-06-28 2020-06-28 Laboratory Lab, [facility] [id number] 10:30:55 10:50:55 Only Fam Pob I Health [id number] [place] [id number] Professio [phone] nal [address] 2020-05-14 2020-05-14 Asael Witt [facility] [id number] 00:00:00 00:00:00 (Out) [facility] [id number] [place] [id number] Professio [phone] nal [address] 2020-05-11 2020-05-11 Laboratory Lab, [facility] [id number] 19:25:50 19:45:50 Only Fam Pob I Health [id number] [place] [id number] Professio [phone] nal 0[address] 2020-02-21 2020-02-21 Laboratory Lab, [facility] [id number] 10:33:38 10:53:38 Only [facility] [id number] [place] [id number] [place] [phone] nal 0[address] One Results This patient has no known results.
--- NOTE | 2020-07-27 00:15 | ER ---
Nurse's Notes [facility] Name: Kirsty Montaño Age: 55 yrs Sex: Female : 1965 Arrival Date: 07/26/2020 Time: 21:44 Bed Waiting Private MD: Diagnosis: Presentation: 07/26 21:52 Chief complaint: Patient states: [place] ankle since Thursday, red, swollen, draining. ca1 Coronavirus screen: Client denies travel out of the [place] in the last 14 days. At this time, the client does not indicate any symptoms associated with coronavirus-19. Ebola Screen: Patient negative for fever greater than or equal to 101.5 degrees Fahrenheit, and additional compatible Ebola Virus Disease symptoms Patient denies exposure to infectious person. Patient denies travel to an Ebola-affected area in the 21 days before illness onset. No symptoms or risks identified at this time. Initial Sepsis Screen: Does the patient meet any 2 criteria? No. Patient's initial sepsis screen is negative. Does the patient have a suspected source of infection? No. Patient's initial sepsis screen is negative. Risk Assessment: Do you want to hurt yourself or someone else? Patient reports no desire to harm self or others. Onset of symptoms was July 26, 2020. 21:52 Method Of Arrival: Ambulatory ca1 21:52 Acuity: ALYCIA 4 ca1 Historical: - Allergies: 21:55 No Known Allergies; ca1 - PMHx: 21:55 Diabetes - NIDDM; High Cholesterol; Hypertension; ca1 - PSHx: 21:55 Tubal ligation; Cholecystectomy; ca1 - Immunization history:: Client reports receiving the 2nd dose of the Covid vaccine, Flu vaccine is not up to date. - Social history:: Smoking status: Patient denies any tobacco usage or history of. Vital Signs: 21:52 BP 146 / 74; Pulse 97; Resp 16 S; Temp 97.5; Pulse Ox 99% on R/A; Weight 77.11 kg (R); ca1 Height 5 ft. 4 in. (162.56 cm) (R); Pain 0/10; 21:52 Body Mass Index 29.18 (77.11 kg, 162.56 cm) ca1 ED Course: 21:44 Patient arrived in ED. cl3 21:54 Triage completed. ca1 21:55 Arm band placed on right wrist. ca1 07/27 00:08 Tristin May PA is PHCP. jr8 00:08 Talib Castro MD is Attending Physician. jr8 00:08 Param Luz RN is Primary Nurse. wh 00:10 Patient's name was called from ER TPACK. No response. bb 00:14 Patient's name was called from ER TPACK. No response. Unable to locate patient. Will bb disposition as left without being seen by a provider. Administered Medications: No medications were administered Outcome: 00:14 Patient left the ED. bb Signatures: Morenita Cook RN RN bb Tristin May PA PA jr8 Param Luz RN RN Scarlet Hand RN RN [facility] Bryson Cota cl3
[2020-07-27 19:38] VITALS: BP 146/74; TEMP 97.5; O2SAT 99
== END 2020-07-27 00:14 | disposition left against medical advice (07) ==
LOC: ER 21:43
DX: Z53.21 Procedure and treatment not carried out due to patient leaving prior to being seen by health care provider (principal)
CPT/HCPCS: 99281

== ENCOUNTER 2021-09-18 23:06 | Emergency (ER) | payer BC ==
--- OUTSIDE RECORDS SUMMARY | 2021-09-18 23:08 | XMS REPORT | Continuity of Care Document ---
:1965 Author Organization [facility] t Address [address] [place] [address] Care Team Providers Name Role Phone PCP, DOES NOT HAVE A Primary Care Physician Unavailable Annemarie PUGA Attending Clinician Unavailable Lab, Fam Pob I Attending Clinician Unavailable Yoshi SHOOK Attending Clinician Unavailable Eduar VEGA, H Attending Clinician Payers Payer Name Policy Type Policy Number Effective Date Expiration Date S [facility] [id number] 2020 00:00:00 [facility] [id number] 2019 PPO 00:00:00 Problems This patient has no known problems. Allergies, Adverse Reactions, Alerts Allergy Allergy Status Severity Reaction(s) Onset Inactive Treating Comm ents Source Name Type Date Date Clinician [facility] Active N/V [facility] 09-28 ity of 00:00: [address] Medications This patient has no known medications. Procedures This patient has no known procedures. Encounters Start End Encounter Admission Attending Care Care Encounter Source Date/Time Date/Time Type Type Clinicians Facility Department ID 2021-04-29 2021-04-29 Outpatient R [facility] [id number] [facility] 13:45:00 13:45:[id number] 2020-09-05 Outpatient R [facility] [id number] Univers 14:40:00 14:40:00 [id number] [facility] 2020-09-05 2020-09-05 Outpatient R VIVIEN [facility] [id number] Univers 14:40:00 14:40:00 JONY ity [facility] 2020-07-27 2020-07-27 Outpatient [facility] [id number] Univers 18:40:00 18:40:00 [id number] ity [facility] 2020-07-27 2020-07-27 Outpatient R [facility] [id number] Univers 18:40:00 18:40:00 ity [facility] 2020-07-22 2020-07-22 Outpatient [facility] [id number] Univers 08:40:00 08:40:00 ity [facility] 2020-06-28 2020-06-28 Laboratory Lab, [facility] [id number] 10:30:55 10:50:55 Only Fam Pob I Health [id number] [place] [id number] Professio [phone] nal 0[address] 2020-06-28 2020-06-28 Outpatient R [facility] [id number] Univers 10:20:00 10:20:00 [id number] [facility] 2020-06-28 2020-06-28 Outpatient R VIVIEN, [facility] [id number] Univers 10:20:00 10:20:00 JONY [facility] 2020-06-24 2020-06-24 Outpatient R BOONE, [facility] [id number] Univers 08:30:00 08:30:00 KELSEY [facility] 2020-05-14 2020-05-14 Asael Witt, [facility] [[email or web address] [id number] 00:00:00 00:00:00 (Out) [facility] [id number] [place] [id number] Professio [phone] nal 0[address] 2020-05-12 2020-05-12 Outpatient R [facility] [id number] Univers 08:20:00 08:20:00 [id number] [facility] 2020-05-11 2020-05-11 Laboratory Lab, [facility] [id number] 19:25:50 19:45:50 Only Fam Pob I Health [id number] [place] [id number] Professio [phone] nal 0[address] 2020-05-11 2020-05-11 Outpatient R [facility] [id number] Univers 19:20:00 19:20:00 [id number] [facility] 2020-05-11 2020-05-11 Outpatient R [facility] [id number] Univers 19:20:00 19:20:00 [facility] 2020-02-21 2020-02-21 Laboratory Lab, [facility] [id number] 10:33:38 10:53:38 Only Fam P[facility] Health [id number] [place] [id number] Professio [phone] nal 0[address] 2020-02-21 2020-02-21 Outpatient R [facility] [id number] Univers 10:40:00 10:40:00 [id number] [facility] 2020-02-21 2020-02-21 Outpatient R [facility] [id number] Univers 10:40:00 10:40:00 [facility] Results This patient has no known results.
--- NOTE | 2021-09-19 00:59 | ER ---
Nurse's Notes [facility] Name: Kirsty Montaño Age: 56 yrs Sex: Female : 1965 Arrival Date: 09/18/2021 Time: 23:10 Bed 5 Private MD: Diagnosis: Otalgia, right ear;Acute upper respiratory infection, unspecified Presentation: 09/18 23:16 Chief complaint: Patient states: "The pain comes and goes, right now it is about a 5/10 tw5 pain. I have been feeling pain in my ear since Thursday and sometimes I have body aches and the pain travels to my throat.". Coronavirus screen: Vaccine status: Patient reports receiving the 2nd dose of the covid vaccine. Moderna. Ebola Screen: Patient negative for fever greater than or equal to 101.5 degrees Fahrenheit, and additional compatible Ebola Virus Disease symptoms Patient denies exposure to infectious person. Patient denies travel to an Ebola-affected area in the 21 days before illness onset. Initial Sepsis Screen: Does the patient meet any 2 criteria? No. Patient's initial sepsis screen is negative. Does the patient have a suspected source of infection? No. Patient's initial sepsis screen is negative. Risk Assessment: Do you want to hurt yourself or someone else? Patient reports no desire to harm self or others. Onset of symptoms was September 14, 2021. 23:16 Method Of Arrival: Ambulatory tw5 23:16 Acuity: ALYCIA 4 tw5 Triage Assessment: 23:18 General: Appears in no apparent distress. Behavior is calm, cooperative, appropriate tw5 for age. Pain: Complains of pain in right ear Pain currently is 5 out of 10 on a pain scale. EENT: Reports pain. Historical: - Allergies: 23:18 No Known Allergies; tw5 - PMHx: 23:18 Diabetes - NIDDM; High Cholesterol; Hypertension; tw5 - Immunization history:: Flu vaccine is not up to date. Patient has never been vaccinated. - Social history:: Smoking status: Patient denies any tobacco usage or history of. Screenin:53 Abuse screen: Denies threats or abuse. Nutritional screening: No deficits noted. tw5 Tuberculosis screening: No symptoms or risk factors identified. Fall Risk None identified. Assessment: 23:54 General: Appears uncomfortable, Behavior is calm, cooperative. Neuro: No deficits tw5 noted. Respiratory: Respiratory effort is even, unlabored, Respiratory pattern is regular, symmetrical. EENT: Reports nasal discharge pain in left aspect of posterior pharynx and right aspect of posterior pharynx Facial pressure. Vital Signs: 23:16 BP 126 / 71; Pulse 84; Resp 18; Temp 98.8(O); Pulse Ox 96% on R/A; Weight 79.83 kg; tw5 Height 5 ft. 5 in. (165.10 cm); Pain 5/10; 23:16 Body Mass Index 29.29 (79.83 kg, 165.10 cm) tw5 ED Course: 23:10 Patient arrived in ED. kz 23:18 Triage completed. tw5 23:18 Arm band placed on left wrist. tw5 23:29 Tristin May PA is PHCP. jr8 23:29 Amari Richey MD is Attending Physician. jr8 23:53 Zahida Joshua is Primary Nurse. tw5 23:53 Awaiting lab results. tw5 23:53 Patient has correct armband on for positive identification. Bed in low position. Call tw5 light in reach. Side rails up X 1. 23:53 No provider procedures requiring assistance completed. COVID swab sent to lab. Flu tw5 and/or RSV swab sent to lab. Strep swab sent to lab. 09/19 01:06 Patient did not have IV access during this emergency room visit. ll3 Administered Medications: No medications were administered Medication: 09/18 23:54 VIS not applicable for this client. tw5 Outcome: 09/19 00:59 Discharge ordered by . kdr 01:06 Discharged to home ambulatory, with significant other. ll3 01:06 Condition: stable 01:06 Discharge instructions given to patient, significant other, Instructed on discharge instructions, follow up and referral plans. medication usage, Demonstrated understanding of instructions, follow-up care, medications, Prescriptions given X 1. 01:07 Patient left the ED. ll3 Signatures: Amari Richey MD MD [facility] Tristin May PA PA Zahida Quevedo tw5 Kaelyn Walden RN RN ll3 Telma Lozano
--- NOTE | 2021-09-19 00:59 | EDPHYS ---
Physician Documentation [facility] Name: Kirsty Montaño Age: 56 yrs Sex: Female : 1965 Arrival Date: 09/18/2021 Time: 23:10 Bed 5 Private MD: ED Physician Amari Richey HPI: 09/18 23:39 This 56 yrs old Female presents to ER via Ambulatory with complaints of Ear jr8 Pain - Right. 23:39 The patient presents with pain. The complaints affect the right ear. Onset: The jr8 symptoms/episode began/occurred gradually. Modifying factors: The symptoms are alleviated by nothing, the symptoms are aggravated by nothing. Associated signs and symptoms: Pertinent positives: sore throat, rhinorrhea. Severity of symptoms: At their worst the symptoms were mild in the emergency department the symptoms are unchanged. The patient has not experienced similar symptoms in the past. The patient has not recently seen a physician. Historical: - Allergies: 23:18 No Known Allergies; tw5 - PMHx: 23:18 Diabetes - NIDDM; High Cholesterol; Hypertension; tw5 - Immunization history:: Flu vaccine is not up to date. Patient has never been vaccinated. - Social history:: Smoking status: Patient denies any tobacco usage or history of. ROS: 23:39 Eyes: Negative for injury, pain, redness, and discharge, Neck: Negative for injury, jr8 pain, and swelling, Cardiovascular: Negative for chest pain, palpitations, and edema, Respiratory: Negative for shortness of breath, cough, wheezing, and pleuritic chest pain, Abdomen/GI: Negative for abdominal pain, nausea, vomiting, diarrhea, and constipation, Back: Negative for injury and pain, MS/Extremity: Negative for injury and deformity, Skin: Negative for injury, rash, and discoloration, Neuro: Negative for headache, weakness, numbness, tingling, and seizure. 23:39 ENT: Positive for ear pain, rhinorrhea, sinus congestion, sore throat. Exam: 23:39 Constitutional: This is a well developed, well nourished patient who is awake, alert, jr8 and in no acute distress. Head/Face: Normocephalic, atraumatic. Eyes: Pupils equal round and reactive to light, extra-ocular motions intact. Lids and lashes normal. Conjunctiva and sclera are non-icteric and not injected. Cornea within normal limits. Periorbital areas with no swelling, redness, or edema. ENT: Nares patent. No nasal discharge, no septal abnormalities noted. Tympanic membranes are normal and external auditory canals are clear. Oropharynx with no redness, swelling, or masses, exudates, or evidence of obstruction, uvula midline. Mucous membranes moist. Neck: Trachea midline, no thyromegaly or masses palpated, and no cervical lymphadenopathy. Supple, full range of motion without nuchal rigidity, or vertebral point tenderness. No Meningismus. Cardiovascular: Regular rate and rhythm with a normal S1 and S2. No gallops, murmurs, or rubs. Normal PMI, no JVD. No pulse deficits. Respiratory: Lungs have equal breath sounds bilaterally, clear to auscultation and percussion. No rales, rhonchi or wheezes noted. No increased work of breathing, no retractions or nasal flaring. Abdomen/GI: Soft, non-tender, with normal bowel sounds. No distension or tympany. No guarding or rebound. No evidence of tenderness throughout. Skin: Warm, dry with normal turgor. Normal color with no rashes, no lesions, and no evidence of cellulitis. MS/ Extremity: Pulses equal, no cyanosis. Neurovascular intact. Full, normal range of motion. Neuro: Awake and alert, GCS 15, oriented to person, place, time, and situation. Cranial nerves II-XII grossly intact. Motor strength 5/5 in all extremities. Sensory grossly intact. Vital Signs: 23:16 BP 126 / 71; Pulse 84; Resp 18; Temp 98.8(O); Pulse Ox 96% on R/A; Weight 79.83 kg; tw5 Height 5 ft. 5 in. (165.10 cm); Pain 5/10; 23:16 Body Mass Index 29.29 (79.83 kg, 165.10 cm) tw5 MDM: 23:30 Patient medically screened. jr8 09/19 00:27 Data reviewed: vital signs, nurses notes, lab test result(s). Data interpreted: Pulse jr8 oximetry: on room air is 96 %. Interpretation: normal. Counseling: I had a detailed discussion with the patient and/or guardian regarding: the historical points, exam findings, and any diagnostic results supporting the discharge/admit diagnosis, lab results, the need for outpatient follow up, a family practitioner, to return to the emergency department if symptoms worsen or persist or if there are any questions or concerns that arise at home. 09/18 23:23 Order name: Flu; Complete Time: 00:27 5 09/18 23:23 Order name: Strep; Complete Time: 00:27 5 09/18 23:56 Order name: SARS-COV-2 RT PCR; Complete Time: 00:58 EDMS 09/19 00:29 Order name: Throat Culture EDMS Administered Medications: No medications were administered Disposition: 00:58 Co-signature as Attending Physician, Amari Richey MD. Co-signature as Attending [facility] Physician, Amari Richey MD I agree with the assessment and plan of care. Disposition Summary: 09/19/21 00:59 Discharge Ordered Location: Home kdr Problem: new kdr Symptoms: have improved kdr Condition: Stable kdr Diagnosis - Otalgia, right ear kdr - Acute upper respiratory infection, unspecified kdr Followup: jr8 - With: Private Physician - When: 5 - 6 days - Reason: Recheck today's complaints, Continuance of care, Re-evaluation by your physician Discharge Instructions: - Discharge Summary Sheet jr8 - Earache, Adult jr8 - Upper Respiratory Infection, Adult jr8 Forms: - Medication Reconciliation Form kdr - Thank You Letter kdr - Antibiotic Education kdr - Prescription Opioid Use kdr Prescriptions: - Prednisone 20 mg Oral Tablet - take 1 tablet by ORAL route once daily for 5 days; 5 tablet; Refills: 0, jr8 Product Selection Permitted Signatures: Dispatcher [employer] EDVT Amari Richey MD MD kdr Tristin May PA PA jr8 Zahida Joshua tw5 Corrections: (The following items were deleted from the chart) 09/18 23:56 23:42 COVID 19 CPL+BRZ ordered. [facility]
[2021-09-19 01:24] VITALS: BP 126/71; TEMP 98.8; O2SAT 96
== END 2021-09-19 01:07 | disposition home or self-care (01) ==
LOC: ER 23:06
DX: J06.9 Acute upper respiratory infection, unspecified (principal); E11.9 Type 2 diabetes mellitus without complications; E78.00 Pure hypercholesterolemia, unspecified; I10 Essential (primary) hypertension; Z20.822 Contact with and (suspected) exposure to COVID-19
CPT/HCPCS: 87070; 87081; 87804 ×2; 99283; U0003

== ENCOUNTER 2022-06-22 09:33 | Emergency (ER) | payer BC ==
--- OUTSIDE RECORDS SUMMARY | 2022-06-22 09:37 | XMS REPORT | Continuity of Care Document ---
:1965 Author Organization [facility] t Address [address] [place] [address] Care Team Providers Name Role Phone PCP, PATIENT DOES NOT HAVE A Primary Care Physician JONY Saenz Attending Clinician Unavailable Lab, Adc Fam Pob I Attending Clinician Unavailable KELSEY SHOOK Attending Clinician Unavailable Toney Witt MD Attending Clinician Payers Payer Name Policy Type Policy Number Effective Date Expiration Date S archana [facility] [id number] 2020 00:00:00 [facility] [id number] 2019 PPO 00:00:00 Problems This patient has no known problems. Allergies, Adverse Reactions, Alerts Allergy Allergy Status Severity Reaction(s) Onset Inactive Treating Comm ents Source Name Type Date Date Clinician [facility] Active N/V [facility] 09-28 ity of 00:00: [address] Medications This patient has no known medications. Procedures This patient has no known procedures. Encounters Start End Encounter Admission Attending Care Care Encounter Source Date/Time Date/Time Type Type Clinicians Facility Department ID 2020-09-05 2020-09-05 Outpatient Aggie PUGA [facility] [id number] Univers 14:40[facility]00 [facility]27 Outpatient R [facility] [id number] Univers 18:40:00 18:40:00 [facility] 2020-07-22 2020-07-22 Outpatient [facility] [id number] Univers 08:40:00 08:40:00 [facility] 2020-06-28 2020-06-28 Laboratory Lab, [facility] [id number] 10:30:55 10:50:55 Only Fam Pob I Health [id number] [place] [id number] Professio [phone] nal [facility] [address] 2020-06-28 2020-06-28 Outpatient R VIVIEN, [facility] [id number] Univers 10:20:00 10:20:00 JONY [facility] 2020-06-24 2020-06-24 Outpatient R BOONE, [facility] [id number] Univers 08:30:00 08:30:00 KELSEY [facility] 2020-05-14 2020-05-14 [facility] [place] [id number] 00:00:00 00:00:00 (Out) [facility] [id number] [place] [id number] Professio [phone] [place] [address] [address] 2020-05-11 2020-05-11 Laboratory Lab, [facility] [id number] 19:25:50 19:45:50 Only Fam Pob I Health [id number] [place] [id number] Professio [phone] [place] [address] [address] 2020-05-11 2020-05-11 Outpatient R [facility] [id number] Univers 19:20:00 19:20:00 [facility] 2020-02-21 2020-02-21 Laboratory Lab, [facility] [id number] 10:33:38 10:53:38 Only Fam Pob I Health [id number] [place] [id number] Professio [phone] nal [facility] [address] 2020-02-21 2020-02-21 Outpatient R [facility] [id number] Univers 10:40:00 10:40:00 [facility] Results This patient has no known results.
[2022-06-22] MEDS ORDERED: NA CHLORIDE 0.9% 1,000 ML ONE (10:01)
[2022-06-22] MEDS ORDERED: KETOROLAC 30 MG/ML INJ ONE (10:01)
[2022-06-22 10:18] LABS: Absolute Lymphocytes (CBC) 3.1 K/uL (0.7-4.9); Lymphocytes % 40.9 % (15.3-44.8); MCV 89.2 fL (80-100); MPV 7.7 fL (7.6-11.3); RBC Red Blood Cell Count 4.48 M/uL (3.86-4.86)
[2022-06-22 10:36] LABS: Albumin 3.6 g/dL (3.4-5.0); Bilirubin Total 0.6 mg/dL (0.2-1.0); Potassium 4.4 mmol/L (3.5-5.1); Protein, Total 7.3 g/dL (6.4-8.2)
[2022-06-22 10:51] LABS: SARS-COV-2 RT PCR NEGATIVE (NEGATIVE)
[2022-06-22 11:23] LABS: Urine Blood Negative (Negative); Urine Glucose 3+ (Negative); Urine Protein Negative (Negative); Urine Specific Gravity 1.015 (1.005-1.030); Urine pH 5.5 (5.0-7.0)
--- NOTE | 2022-06-22 11:27 | RAD REPORT ---
EXAM DESCRIPTION: CT - Abdomen Pelvis W Contrast - 06/22/2022 11:07 am CLINICAL HISTORY: Left lower quadrant pain, chills, and body aches. Nausea COMPARISON: 11/20/2017. TECHNIQUE: Biphasic, helical CT imaging of the abdomen and pelvis was performed following intravenou s administration of 90 mL Isovue-300. Multiplanar reformats were generated and reviewed. All CT scans are performed using dose optimization technique as appropriate and may include automated exposure control or mA/KV adjustment according to patient size. FINDINGS: No suspicious findings in the lung bases. The liver, spleen, and pancreas show no suspicious findings. Status post cholecystectomy. No evidence of intra or extrahepatic biliary ductal dilation. Symmetric renal function is seen with no hydronephrosis or suspicious renal mass. 2-3 millimeter nono bstructing right renal midpole calculus. No dilated bowel loops or bowel wall thickening. No free air, free fluid or inflammatory stranding. N o hernia, mass or bulky lymphadenopathy. The urinary bladder is without significant finding. Left ovarian fluid density ovoid 3.7 centimeter cyst. Small bilateral umbilical hernias containing fat. No suspicious bony findings. IMPRESSION: No acute abnormalities in the abdomen or pelvis. Incidentally noted 2-3 millimeter nonobstructing right renal midpole calculus. Left ovarian 3.5 centimeter cyst, likely physiologic.
[2022-06-22 11:28] LABS: Urine Bacteria <20 /HPF (<20); Urine RBC <5 /HPF (None Seen)
--- NOTE | 2022-06-22 11:41 | ER ---
Nurse's Notes [facility] Name: Kirsty Montaño Age: 56 yrs Sex: Female : 1965 Arrival Date: 06/22/2022 Time: 09:37 Bed 18 Private MD: Humberto Green B Diagnosis: Other ovarian cysts Presentation: 06/22 09:40 Chief complaint: Patient states: LLQ pain, chills, body aches x 1 week ago. Pt also aa5 reports nausea and runny nose. 09:40 Coronavirus screen: chills, muscle pain. Ebola Screen: Patient denies travel to an [facility] Ebola-affected area in the 21 days before illness onset. Initial Sepsis Screen: Does the patient meet any 2 criteria? No. Patient's initial sepsis screen is negative. Does the patient have a suspected source of infection? No. Patient's initial sepsis screen is negative. Risk Assessment: Do you want to hurt yourself or someone else? Patient reports no desire to harm self or others. Onset of symptoms was May 2022. 09:40 Acuity: ALYCIA 3 aa5 09:40 Method Of Arrival: Ambulatory aa5 Historical: - Allergies: 09:40 No Known Allergies; aa5 - Home Meds: 09:51 metformin 750 mg oral Tb24 [Active]; Farxiga 10 mg oral tab 1 tab once daily [Active]; aa5 glimepiride 4 mg Oral tab [Active]; olmesartan 40 mg oral tab 1 tab once daily [Active]; pravastatin 40 mg oral tab [Active]; ezetimibe 10 mg oral tab 1 tab [Active]; Soliqua 100/33 subcutaneous [Active]; - PMHx: 09:40 Diabetes - NIDDM; High Cholesterol; Hypertension; aa5 - PSHx: 09:40 Cholecystectomy; aa5 - Immunization history:: Client reports receiving the 2nd dose of the Covid vaccine. - Social history:: Smoking status: Patient denies any tobacco usage or history of. Screenin:08 [facility] ED Fall Risk Assessment (Adult) History of falling in the last 3 months, ko1 including since admission No falls in past 3 months (0 pts) Confusion or Disorientation No (0 pts) Intoxicated or Sedated No (0 pts) Impaired Gait No (0 pts) Mobility Assist Device Used No (0 pt) Altered Elimination No (0 pt) Score/Fall Risk Level 0 - 2 = Low Risk Oriented to surroundings, Maintained a safe environment, Educated pt \T\ family on fall prevention, incl call for assistance when getting out of bed, Assessed \T\ reinforced patient's understanding of fall precautions, Provided non-skid footwear, Hourly rounding (assess needs \T\ fall precautionary measures) done, Used ambulatory aids as needed (educated on \T\ assisted with), Used gait belt as appropriate. Abuse screen: Denies threats or abuse. Denies injuries from another. Nutritional screening: No deficits noted. Tuberculosis screening: No symptoms or risk factors identified. Assessment: 10:08 General: Appears in no apparent distress. uncomfortable, Behavior is calm, cooperative, ko1 appropriate for age. Pain: Complains of pain in left lower quadrant. Neuro: No deficits noted. Cardiovascular: No deficits noted. Respiratory: No deficits noted. GI: Bowel sounds present X 4 quads. Abd is soft X 4 quads Abdomen is tender to palpation. : No deficits noted. EENT: No deficits noted. Derm: No deficits noted. Musculoskeletal: No deficits noted. Vital Signs: 09:40 BP 109 / 55; Pulse 80; Resp 16 S; Temp 98.3(O); Pulse Ox 97% on R/A; Weight 79.83 kg aa5 (R); Height 5 ft. 5 in. (165.10 cm) (R); 09:45 BP 127 / 62; Pulse 76; Resp 16; Pulse Ox 97% ; ko1 10:30 BP 124 / 70; Pulse 71; Pulse Ox 97% ; ko1 09:40 Body Mass Index 29.29 (79.83 kg, 165.10 cm) aa5 ED Course: 09:37 Patient arrived in ED. mr 09:37 Humberto Green MD is Private Physician. mr 09:40 Suze Wu FNP-C [facility] kb 09:40 Zack Rosas MD is Attending Physician. kb 09:40 Arm band placed on Patient placed in an exam room, on a stretcher. aa5 09:50 Triage completed. aa5 09:52 Rocio Farmer, AKUA is Primary Nurse. ko1 10:04 COVID-19/FLU A+B Sent. ko1 10:08 Patient has correct armband on for positive identification. Bed in low position. Call ko1 light in reach. Side rails up X 1. Pulse ox on. NIBP on. 10:08 No provider procedures requiring assistance completed. ko1 10:10 CBC with Diff Sent. ko1 10:10 CMP Sent. ko1 10:10 Lipase Sent. ko1 10:13 Inserted saline lock: 20 gauge in right antecubital area, using aseptic technique. rs5 Blood collected. 11:13 Urine Microscopic Only Sent. ko1 11:42 IV discontinued, intact, bleeding controlled, No redness/swelling at site. Pressure ko1 dressing applied. Administered Medications: 10:10 Drug: NS 0.9% 1000 ml Route: IV; Rate: 1 bolus; Site: right antecubital; ko1 11:08 Follow up: Response: No adverse reaction; IV Status: Completed infusion; IV Intake: ko1 1000ml 10:11 Drug: TORadol - (ketorolac) 15 mg Route: IVP; Site: right antecubital; ko1 11:08 Follow up: Response: No adverse reaction; Pain is decreased ko1 Medication: 10:08 VIS not applicable for this client. ko1 Intake: 11:08 IV: 1000ml; Total: 1000ml. ko1 Outcome: 11:41 Discharge ordered by . abraham 11:42 Discharged to home ambulatory, with family. ko1 11:42 Condition: improved 11:42 Discharge instructions given to patient, family, Instructed on discharge instructions, follow up and referral plans. Demonstrated understanding of instructions, follow-up care. 11:47 Patient left the ED. ko1 Signatures: Suze Wu, ELEAZAR DURONP-Vanessa Botello Eneida Chou, Barbara, RN RN aa5 Rocio Farmer, RN RN ko1 Elvis Zepeda rs5
--- NOTE | 2022-06-22 11:41 | EDPHYS ---
Physician Documentation [facility] Name: Kirsty Montaño Age: 56 yrs Sex: Female : 1965 Arrival Date: 06/22/2022 Time: 09:37 Bed 18 Private MD: Humberto Green B ED Physician Zack Rosas HPI: 06/22 12:02 This 56 yrs old Female presents to ER via Ambulatory with complaints of kb Abdominal Pain. 12:02 The patient presents with abdominal pain in the left lower quadrant. Onset: The kb symptoms/episode began/occurred 1 week(s) ago. The symptoms do not radiate. Associated signs and symptoms: Pertinent positives: nausea. The symptoms are described as constant. Modifying factors: The symptoms are alleviated by nothing, the symptoms are aggravated by pressure. Severity of pain: At its worst the pain was moderate in the emergency department the pain is unchanged. The patient has not experienced similar symptoms in the past. The patient has not recently seen a physician. Historical: - Allergies: 09:40 No Known Allergies; aa5 - Home Meds: 09:51 metformin 750 mg oral Tb24 [Active]; Farxiga 10 mg oral tab 1 tab once daily [Active]; aa5 glimepiride 4 mg Oral tab [Active]; olmesartan 40 mg oral tab 1 tab once daily [Active]; pravastatin 40 mg oral tab [Active]; ezetimibe 10 mg oral tab 1 tab [Active]; Soliqua 100/33 subcutaneous [Active]; - PMHx: 09:40 Diabetes - NIDDM; High Cholesterol; Hypertension; aa5 - PSHx: 09:40 Cholecystectomy; aa5 - Immunization history:: Client reports receiving the 2nd dose of the Covid vaccine. - Social history:: Smoking status: Patient denies any tobacco usage or history of. ROS: 12:02 Respiratory: Negative for shortness of breath, cough, wheezing, and pleuritic chest kb pain. 12:02 Constitutional: Positive for body aches, chills. 12:02 Abdomen/GI: Positive for abdominal pain, nausea. 12:02 All other systems are negative. 12:02 ENT: Positive for rhinorrhea. kb Exam: 12:02 Constitutional: This is a well developed, well nourished patient who is awake, alert, kb and in no acute distress. Head/Face: Normocephalic, atraumatic. ENT: Moist Mucous membranes Cardiovascular: Regular rate and rhythm with a normal S1 and S2. No gallops, murmurs, or rubs. No pulse deficits. Respiratory: Respirations even and unlabored. No increased work of breathing. Talking in full sentences Skin: Warm, dry with normal turgor. Normal color. MS/ Extremity: Pulses equal, no cyanosis. Neurovascular intact. Full, normal range of motion. Neuro: Awake and alert, GCS 15, oriented to person, place, time, and situation. Moves all extremities. Normal gait. Psych: Awake, alert, with orientation to person, place and time. Behavior, mood, and affect are within normal limits. 12:02 Abdomen/GI: Inspection: abdomen appears normal, Bowel sounds: normal, Palpation: soft, in all quadrants, moderate abdominal tenderness, in the left lower quadrant. Vital Signs: 09:40 BP 109 / 55; Pulse 80; Resp 16 S; Temp 98.3(O); Pulse Ox 97% on R/A; Weight 79.83 kg aa5 (R); Height 5 ft. 5 in. (165.10 cm) (R); 09:45 BP 127 / 62; Pulse 76; Resp 16; Pulse Ox 97% ; ko1 10:30 BP 124 / 70; Pulse 71; Pulse Ox 97% ; ko1 09:40 Body Mass Index 29.29 (79.83 kg, 165.10 cm) aa5 MDM: 09:40 Patient medically screened. kb 12:03 Differential diagnosis: diverticulitis, non-specific abd pain, urinary tract infection, kb Ovarian cyst. Data reviewed: vital signs, nurses notes. Counseling: I had a detailed discussion with the patient and/or guardian regarding: the historical points, exam findings, and any diagnostic results supporting the discharge/admit diagnosis, lab results, radiology results, the need for outpatient follow up, a family practitioner, an OB/Gyne specialist, to return to the emergency department if symptoms worsen or persist or if there are any questions or concerns that arise at home. ED course: Patient is a 56-year-old female who presents for left lower quadrant pain, chills, body aches, nausea and runny nose that started a week ago. Reports she has a history of ovarian cyst on the left but that pain is completely resolved since the last time. On exam patient has moderate tenderness to left lower quadrant/left pelvic area. Serum labs, urinalysis, COVID and flu test as well as CT scan done and reviewed. Ovarian cyst noted to the left side. Patient educated on diagnostic results and need for follow-up with gynecology. Verbal understanding received.. 06/22 09:48 Order name: CBC with Diff; Complete Time: 10:29 kb 06/22 09:48 Order name: CMP; Complete Time: 10:52 kb 06/22 09:48 Order name: Lipase; Complete Time: 10:52 kb 06/22 09:48 Order name: Urine Microscopic Only; Complete Time: 11:32 kb 06/22 09:48 Order name: COVID-19/FLU A+B; Complete Time: 10:52 kb 06/22 11:23 Order name: Urine Dipstick-Ancillary; Complete Time: 11:24 EDMS 06/22 09:48 Order name: CT Abd/Pelvis - IV Contrast Only kb 06/22 09:48 Order name: IV Saline Lock; Complete Time: 10:10 kb 06/22 09:48 Order name: Labs collected and sent; Complete Time: 10:10 kb 06/22 09:48 Order name: Urine Dipstick-Ancillary (obtain specimen); Complete Time: 11:13 kb 06/22 11:28 Order name: CT; Complete Time: 11:32 EDMS Administered Medications: 10:10 Drug: NS 0.9% 1000 ml Route: IV; Rate: 1 bolus; Site: right antecubital; ko1 11:08 Follow up: Response: No adverse reaction; IV Status: Completed infusion; IV Intake: ko1 1000ml 10:11 Drug: TORadol - (ketorolac) 15 mg Route: IVP; Site: right antecubital; ko1 11:08 Follow up: Response: No adverse reaction; Pain is decreased ko1 Disposition: 12:10 Co-signature as Attending Physician, Zack Rosas MD I reviewed the patient's care rn provided by the Advanced Practice Provider and agree with the diagnosis and treatment plan. Disposition Summary: 06/22/22 11:41 Discharge Ordered Location: Home kb Condition: Stable kb Diagnosis - Other ovarian cysts kb Followup: kb - With: Emergency Department - When: As needed - Reason: Worsening of condition Followup: kb - With: Private Physician - When: 2 - 3 days - Reason: Recheck today's complaints, Continuance of care, Re-evaluation by your physician Discharge Instructions: - Discharge Summary Sheet kb - Ovarian Cyst, [id number] kb Forms: - Medication Reconciliation Form kb - Thank You Letter kb - Antibiotic Education kb - Prescription Opioid Use kb Signatures: Dispatcher [employer] EDSuze Abraham, DIRECTOR FUNERAL-C DIRECTOR FUNERAL-Ckb Zack Rosas MD MD rn Barbara Chou RN RN aa5 Rocio Farmer RN RN ko1 Corrections: (The following items were deleted from the chart) 12:02 12:02 Abdomen/GI: Positive for abdominal pain, kb kb
[2022-06-22 11:59] VITALS: TEMP 98.3; O2SAT 97
[2022-06-22 12:01] VITALS: BP 124/70
== END 2022-06-22 11:47 | disposition home or self-care (01) ==
LOC: ER 09:33
DX: N83.292 Other ovarian cyst, left side (principal); E11.9 Type 2 diabetes mellitus without complications; I10 Essential (primary) hypertension; Z20.822 Contact with and (suspected) exposure to COVID-19
CPT/HCPCS: 96361; 85025; 36415; 83690; 80053; 0240U; 74177; 96374; 99284; Q9967; J7030; 81003; 81015

== ENCOUNTER 2023-02-12 05:55 | Day surgery (SDC) | payer BC ==
[2023-02-11 10:39] LABS: Absolute Lymphocytes (CBC) 2.9 K/uL (0.7-4.9); Hematocrit 39.6 % (36.0-45.0); Lymphocytes % 35.9 % (15.3-44.8); MCV 87.8 fL (80-100); MPV 7.7 fL (7.6-11.3); Platelets 295 thou/uL (152-406); RBC Red Blood Cell Count 4.51 M/uL (3.86-4.86)
[2023-02-11 11:13] LABS: Specific Gravity > 1.030 (1.005-1.030); Urine Bilirubin NEGATIVE (Negative); Urine Blood Negative (Negative); Urine Clarity Clear (Clear); Urine Color Colorless (Yellow); Urine Glucose 4+ (Over) (Negative); Urine Protein NEGATIVE (Negative); Urine Urobilinogen Normal (Normal)
[2023-02-12] MEDS: CEFAZOLIN SODIUM 2 GM/VIAL ONE ×2 (06:25→06:46)
[2023-02-12] MEDS ORDERED: NA CHLORIDE 0.9% 1,000 ML ONE (06:33)
[2023-02-12] MEDS ORDERED: SCOPOLAMINE HYDROBROMIDE PATCH TD ONE (06:33)
[2023-02-12] MEDS ORDERED: ROCURONIUM 50 MG/5 ML VIAL IV ONE (06:34)
[2023-02-12] MEDS ORDERED: propofoL 200 MG/20 ML VIAL IV ONE (06:34)
[2023-02-12] MEDS ORDERED: dexAMETHasone 10 MG/ML VIAL ONE (06:35)
[2023-02-12] MEDS ORDERED: FENTANYL CITR 250 MCG/5 ML ONE (06:37)
[2023-02-12] MEDS ORDERED: LIDOCAINE 2% MPF 5 ML VIAL ONE (06:37)
[2023-02-12] MEDS ORDERED: MIDAZOLAM HCL 2 MG/2 ML INJ ONE (06:37)
[2023-02-12] MEDS ORDERED: KETAMINE HCL IN 0.9 % NACL 50 MG/5 ML SYRINGE IV ONE (06:37)
[2023-02-12] MEDS ORDERED: ONDANSETRON 4 MG/2 ML VIAL ONE ×2 (06:43→09:41)
[2023-02-12] MEDS: BUPIVACAINE 0.25% PF 30 ML VIAL ONE ×2 (06:47→07:32)
[2023-02-12] MEDS ORDERED: EPHEDRINE SULF 50 MG/ML VIAL ONE (07:32)
[2023-02-12] MEDS ORDERED: Ringers Lactate 1,000 ML IV ONE (07:56)
[2023-02-12] MEDS ORDERED: KETOROLAC 30 MG/ML INJ ONE (08:51)
[2023-02-12] MEDS ORDERED: Mastisol Adhesive Liq ONE (09:19)
[2023-02-12 09:50] VITALS: TEMP 97
[2023-02-12] MEDS ORDERED: HYDROCODONE/APAP 5/325 MG TAB ONE (10:46)
[2023-02-12 11:46] VITALS: BP 140/80; O2SAT 96
--- NOTE | 2023-02-13 21:06 | OP ---
Date of Procedure: 02/12/2023 Surgeon: Shari Martin MD Translator/Interpreter: Letty Weller. Preoperative Diagnoses: Endometrial hyperplasia (thickened endometrium), pelvic pain and left adnexa l mass, possible left ovarian cyst. Postoperative Diagnoses: Endometrial hyperplasia and pelvic pain and left ovarian cyst. Procedures Performed: 1.Total laparoscopic hysterectomy. 2.Bilateral salpingo-oophorectomy. 3.Pelvic washings. Ebl: 25. Urine Output: 100. Fluids: Ringer's lactate 1 L. Specimens: Uterus, bilateral tubes and ovaries, and pelvic washings. Complications: No complications. Drains: No drains. Condition: Patient's condition is stable. Findings: Uterus was anteflexed. No significant lesions in the pelvic cavity. The cyst on the left ovary was smooth. The surface unremarkable. Pelvic peritoneum unremarkable as well. Close inspect ion of the entire upper abdominal and lower abdominal, pelvic and peritoneal surfaces was conducted a nd was unremarkable. After the hysterectomy, the vaginal cuff was closed with the help of interrupte d sutures. The patient is a 57-year-old with a pelvic pain on ultrasound, left adnexal mass, likely ovarian. En dometrium also appeared to be thickened on sampling, was negative for any atypia or malignancy. Disc ussed about her symptoms and in light of the adnexal mass, although it was not over 5 cm and was not a high suspicion for malignancy in a postmenopausal patient with these above problems, I offered obse rvation versus surgery and all the benefits and risks of both. The patient wanted to proceed with hy sterectomy. Description Of Procedure: She was consented and taken back to the OR after re-consented in the preop erative area. was present by her side. All questions and answers were done to their satisfa ction. After she was taken back to the OR, placed in supine fashion on the operating table, general anesthes ia was given. She was placed in a dorsal lithotomy position using Tyler stirrups. Abdomen was prepp ed with ChloraPrep. Vulva, vagina and perineum with Betadine and draped in a sterile fashion. The a harjit were tucked by the side, positioning was checked. SCDs were started. Time-out was done. 2 g of Ancef were given and procedure started. Speculum was placed to expose the cervix. Anterior lip grasped with Allis clamp. Cervix dilated to 14-Estonian and a large VCare manipulator introduced into place and fixed in place. Brush was placed t o drain the bladder and attached to a drainage bag to gravity. This area was then draped. A 1 cm supraumbilical incision was made with a scalpel using the open laparoscopy technique. Fascia was incised, tagged with 0 Vicryl sutures. Peritoneum entered sharply. S retractors were placed, Saleh sson was introduced and after adequate insufflation, site of entry was unremarkable. Two 5 ports wer e placed 1 each in the left and right lower quadrants and a 10th suprapubic port. The patient was pl aced in Trendelenburg position and the peritoneal surfaces were all examined completely unremarkable appendix unremarkable. Ovaries were visualized. The left ovarian cyst was evident and smooth. Plan was to perform a BLANQUITA-BSO. After the pelvic washings were performed, the peritoneum was opened up between the round ligament and the IP ligament. The lateral wall and dissected ureter was identified in the medial leaf of the bro ad ligament and IP . Then, a window was made for the round ligament as well on the left akosua e. Similar dissection performed on the right, then IP ligament was taken down to help of the LigaSur e as well as the round ligament, first on the left side then on the right side and carefully not rupt uring the cyst. The broad ligament was taken down with opening of the peritoneal flaps anteriorly an d posteriorly all the way to the level of the bladder flap. Then, the bladder flap was raised with I incising the peritoneum sharply on the anterior vaginal wall. Then, bladder was dissected inferiorl y to expose the anterior vaginal wall and the VCare cup or the vaginal manipulator cup. The vessels were identified, first on the left side, they were cauterized and cut at the level of the internal os and the rest of the vessels were taken down while taking down the cardinal ligaments and the support . Then posteriorly, the peritoneum was incised and dissected laterally to protect the ureter. Oppos ite side similar dissection was performed at the broad ligament opening up the end connecting the ant erior bladder flap and posteriorly taken down the peritoneum to go onto the cup. The vessels were ta dougie down as well in cardinal ligaments. Then, circumferential colpotomy was performed with a monopol ar hook blade and circumferential colpotomy was performed detaching the entire specimen and this was pulled out through the vagina without any rupture of the ovarian mass. After thorough irrigation suction were performed, bladder was slightly dissected further down to expo se the anterior vaginal wall. A simple 0 PDS was used on the right corner and a 2-0 PDS was still us ed on the left corner to secure the corners as well as hemostasis. Then, ywylru-sx-lpmru sutures wer e placed with the help of 2-0 PDS and 3 yechrqu-cr-dhrlo. An extra simple stitch was placed to close the rest of the cuff with a full-thickness anterior and posterior vaginal wall fascia. Thorough irr igation suction was performed. There was excellent hemostasis. Both ureters had no evidence of elec trical, mechanical, or thermal injury to them. Good peristalsis was noted. All pedicles hemostatic. All the trocars were removed under direct vision. Gas was desufflated. Umbilical fascial incision was closed with the help of tagged 0 Vicryl sutures tied to each other and simple 0 Vicryl suture at the suprapubic site. All the skin incisions were closed with the help of interrupted 02 Monocryl . The vaginal occluder and the Brush were removed. Instrument, needle, and sponge counts were corre ct in the case. The patient tolerated the procedure well. She was recovered from anesthesia and hortencia en to the PACU in stable condition. She will have a 1-week followup path results and 4 weeks postop. BAMBI/YARITZA Voice ID: [id number] Report ID: [id number]
== END 2023-02-12 11:38 | disposition home or self-care (01) ==
LOC: OR 05:55
PROVIDERS: ATTEND Obstetrics & Gynecology
PROC: 0UT24ZZ Resection of Bilateral Ovaries, Percutaneous Endoscopic Approach (ICD-10-PCS; 2023-02-12)
PROC: 0UT74ZZ Resection of Bilateral Fallopian Tubes, Percutaneous Endoscopic Approach (ICD-10-PCS; 2023-02-12)
PROC: 0UT94ZZ Resection of Uterus, Percutaneous Endoscopic Approach (ICD-10-PCS; principal; 2023-02-12 07:00)
DX: N85.00 Endometrial hyperplasia, unspecified (principal); R10.2 Pelvic and perineal pain; N83.202 Unspecified ovarian cyst, left side; E11.9 Type 2 diabetes mellitus without complications; E78.00 Pure hypercholesterolemia, unspecified; I10 Essential (primary) hypertension; N88.8 Other specified noninflammatory disorders of cervix uteri; N80.03 Adenomyosis of the uterus
CPT/HCPCS: 58571; 85025; 36415; 86900; 88108; 86850; 86901; 82947 ×2; 88305; 88307; 81003; J2704; J2001; J2250; J3010; J1100; J2405 ×2; J7120; J7030

== ENCOUNTER → 2023-05-10 | Emergency (ER) | payer BC ==
[~2023-05-10] MED LIST: AZITHROMYCIN 250 MG TAB ONE; IBUPROFEN 200 MG TAB PO ONE
--- OUTSIDE RECORDS SUMMARY | 2023-05-10 13:19 | XMS REPORT | Continuity of Care Document ---
Author Name Unknown Address [address] [place] [address] [facility] thconnect Address [address] [place] [address] Care Team Providers Care Mold Finisher Name Role Phone Pcp, Patient Does Not Have A Primary Care Physic jaqueline [email or web address] Attending Clinician Unavaila ble Neo Chapman Attending Clinician NEO MAYER Attending Clinician Unavailable Unknown, Attending Attending Clinician Unavailab JONY Galvez Attending Clinician Unavailable Lab, Adc Fam Pob I Attending Clinician Unavailab KELSEY Saravia Attending Clinician Unavailable Toney Witt MD Attending Clinician [email or web address]_S Admitting Clinician Unavaila ble Payers Payer Name Policy Type Policy Number Effective Date Expirati on Date Source [place] [id number] 2020 00:00:00 [facility] PPO [id number] 2019 00:00:00 Allergies, Adverse Reactions, Alerts Allergy Name Allergy Type Status Severity Reaction(s) Onset Date Inactive Date Treating Clinician Comments Source DULAGLUT RAJIV DRUG INGREDI Active N/V 09-28 00:00: 00 [facility] Dulaglut rajiv Propensi ty to adverse reaction s Active Nausea and/or Vomiting 09-28 00:00: 00 [facility] Social History Social Habit Start Date Stop Date Quantity Comments Source Tobacco use and exposure 2022-08-09 00:00:00 2022-08-09 00:00:00 Smokeless tobacco non-user [facility] Alcohol intake 2022-08-09 00:00:00 2022-08-09 00:00:00 Current non-drinker of alcohol (finding) [facility] Sex Ass[birth year] At 1965 00:00:00 1965 00:00:00 [facility] Smoking Status Start Date Stop Date Source Never smoked tobacco [facility] Medications Ordered Medication Name Filled Medication Name Start Date Stop Date Current Medication? Ordering Clinician Indication Dosage Frequency Signature (SIG) Comments Components Source levoFLOXaci n 750 mg tablet 08-09 00:00: 00 08-17 04:59 :00 No [id number] 750mg Take 1 tablet by mouth every 24 (twenty-fo ur) hours for 7 days. [facility] levoFLOXaci n 750 mg tablet 08-09 00:00: 00 08-17 04:59 :00 No [id number] 9107 750mg Take 1 tablet by mouth every 24 (twenty-fo ur) hours for 7 days. [facility] levoFLOXaci n 750 mg tablet 08-09 00:00: 00 08-17 04:59 :00 No [id number] 9107 750mg Take 1 tablet by mouth every 24 (twenty-fo ur) hours for 7 days. [facility] OZEMPIC 0.25 mg or 0.5 mg (2 mg/3 mL) PnIj 0 4-10 00:00: 00 Yes [facility] OZEMPIC 0.25 mg or 0.5 mg (2 mg/3 mL) PnIj 0 4-10 00:00: 00 Yes [facility] OZEMPIC 0.25 mg or 0.5 mg (2 mg/3 mL) PnIj 2022-0 4-10 00:00: 00 Yes [facility] FARXIGA 10 mg tablet 2-14 00:00: 00 Yes [facility] ezetimibe 10 mg tablet 3-0 2-14 00:00: 00 Yes [facility] glimepiride 4 mg tablet 3-0 2-14 00:00: 00 Yes [facility] olmesartan 40 mg tablet 3-0 2-14 00:00: 00 Yes [facility] pravastatin 40 mg tablet 3-0 2-14 00:00: 00 Yes [facility] FARXIGA 10 mg tablet 2022-0 2-14 00:00: 00 Yes [facility] ezetimibe 10 mg tablet 3-0 2-14 00:00: 00 Yes [facility] glimepiride 4 mg tablet 2022-0 2-14 00:00: 00 Yes [facility] olmesartan 40 mg tablet 3-0 2-14 00:00: 00 Yes [facility] pravastatin 40 mg tablet 3-0 2-14 00:00: 00 Yes [facility] FARXIGA 10 mg tablet 3-0 2-14 00:00: 00 Yes [facility] ezetimibe 10 mg tablet 2022-0 2-14 00:00: 00 Yes [facility] glimepiride 4 mg tablet 2022-0 2-14 00:00: 00 Yes [facility] olmesartan 40 mg tablet 3-0 2-14 00:00: 00 Yes [facility] pravastatin 40 mg tablet 3-0 2-14 00:00: 00 Yes [facility] repaglinide 2 mg tablet 1-0 3-04 00:00: 00 Yes [facility] VICTOZA 3-ROCIO 0.6 mg/0.1 mL (18 mg/3 mL) injection 2020-0 3-04 00:00: 00 Yes [facility] repaglinide 2 mg tablet 1-0 3-04 00:00: 00 Yes [facility] VICTOZA 3-ROCIO 0.6 mg/0.1 mL (18 mg/3 mL) injection 06-28 00:00: 00 Yes [facility] repaglinide 2 mg tablet 06-28 00:00: 00 Yes [facility] VICTOZA 3-ROCIO 0.6 mg/0.1 mL (18 mg/3 mL) injection 06-28 00:00: 00 Yes [facility] metformin ER 500 mg 24 hr tablet 09-28 00:00: 00 Yes [id number] 1000mg Take 2 tablets by mouth 2 (two) times daily with meals. [facility] 500 mg 24 hr tablet 09-28 00:00: 00 Yes [id number] 1000mg Take 2 tablets by mouth 2 (two) times daily with meals. [facility] 500 mg 24 hr tablet 09-28 00:00: 00 Yes [id number] 1000mg Take 2 tablets by mouth 2 (two) times daily with meals. [facility] losartan 50 mg tablet 09-23 00:00: 00 Yes [facility] losartan 50 mg tablet 09-23 00:00: 00 Yes [facility] losartan 50 mg tablet 09-23 00:00: 00 Yes [facility] atorvastati n 40 mg tablet 08-25 00:00: 00 Yes [facility] at[facility] mg tablet 08-25 00:00: 00 Yes [facility] atorvastati n 40 mg tablet 08-25 00:00: 00 Yes [facility] omeprazole 40 mg capsule 08-22 00:00: 00 Yes [facility] omeprazole 40 mg capsule 08-22 00:00: 00 Yes [facility] mg capsule 08-22 00:00: 00 Yes [facility] Vital Signs Vital Name Observation Time Observation Value Comments S archana Systolic blood pressure 2022-08-09 23:55:00 133 mm[Hg] Barney o [facility] Diastolic blood pressure 2022-08-09 23:55:00 81 mm[Hg] Barney o [facility] Heart rate 2022-08-09 23:54:00 74 /min [facility] Body temperature 2022-08-09 23:54:00 36.56 Cinthia [facility] Respiratory rate 2022-08-09 23:54:00 16 /min [facility] Body weight 2022-08-09 23:54:[address] [facility] BMI 2022-08-09 23:54:00 30.21 kg/m2 [facility] Oxygen saturation in Arterial blood by Pulse oximetry 2022-08-09 23:54:00 97 /min Barney o [facility] Procedures Procedure Date / Time Performed Performing Clinicia n Source XR FOOT 3+ VW RIGHT 2022-08-10 00:10:00 Lizandro Mayer [facility] Encounters Start Date/Time End Date/Time Encounter Type Admission Type Attending [facility] Care Facility Care Department Encounter ID Source 2023-03-03 00:00:00 2023-03-03 00:00:00 Outpatient GC_GCBZW_Ka diyala_S PRIV PRIV [id number] [facility] 2023-02-10 00:00:00 2023-02-10 00:00:00 Outpatient GC_GCBZW_Ka diyala_S PRIV PRIV [id number] [facility] 2023-02-10 00:00:00 2023-02-10 00:00:00 Outpatient GC_GCBZW_Ka diyala_S PRIV PRIV [id number] [facility] 2023-01-02 00:00:00 2023-01-02 00:00:00 Outpatient GC_GCBZW_Ka diyala_S PRIV PRIV [id number] [facility] 2023-01-02 00:00:00 2023-01-02 00:00:00 Outpatient GC_GCBZW_Ka diyala_S PRIV PRIV [id number] [facility] 2022-12-31 00:00:00 2022-12-31 00:00:00 Outpatient GC_GCBZW_Ka diyala_S PRIV PRIV [id number] [facility] 2022-12-19 00:00:00 2022-12-19 00:00:00 Outpatient GC_GCBZW_Ka diyala_S PRIV PRIV [id number] [facility] 2022-11-21 00:00:00 2022-11-21 00:00:00 Outpatient GC_GCBZW_Ka diyala_S PRIV PRIV [id number] [facility] 2022-11-13 00:00:00 2022-11-13 00:00:00 Outpatient GC_GCBZW_Ka diyala_S PRIV PRIV [id number] [facility] 2022-11-13 00:00:00 2022-11-13 00:00:00 Outpatient GC_GCBZW_Ka diyala_S PRIV PRIV [id number] [facility] 2022-08-09 19:02:10 2022-08-09 23:59:00 Hospital Encounter Sherrell Mayervernon [facility] [id number] [facility] 2022-08-09 18:40:00 2022-08-09 19:12:21 Outpatient R NEO MAYER [facility] [id number] [facility] 2022-08-09 18:40:00 2022-08-09 19:12:21 Urgent Care Sherrell Mayervernon Unknown, Attending [facility] [id number] [facility] 2020-09-05 14:40:00 2020-09-05 14:40:00 Outpatient JONY CLAIRE [facility] [id number] [facility] 2020-07-27 18:40:00 2020-07-27 18:40:00 Outpatient R [facility] [id number] [facility] 2020-07-22 08:40:00 2020-07-22 08:40:00 Outpatient [facility] [id number] [facility] 2020-06-28 10:30:55 2020-06-28 10:50:55 Laboratory Only Lab, [facility] [address] .114 [id number] 2020-06-28 10:20:00 2020-06-28 10:20:00 Outpatient R JONY PUGA [facility] [id number] [facility] 2020-06-24 08:30:00 2020-06-24 08:30:00 Outpatient R KELSEY SHOOK [facility] [id number] [facility] 2020-05-14 00:00:00 2020-05-14 00:00:00 Letter (Out) Toney Witt [facility] [address] .114 [id number] [id number] 2020-05-11 19:25:50 2020-05-11 19:45:50 Laboratory Only Lab, [facility] [address] .114 [id number] 2020-05-11 19:20:00 2020-05-11 19:20:00 Outpatient R [facility] [id number] [facility] 2020-02-21 10:33:38 2020-02-21 10:53:38 Laboratory Only Lab, Ad[facility] Fam P[facility] [address] .114 [id number] [id number] [id number] 2020-02-21 10:40:00 2020-02-21 10:40:00 Outpatient R [facility] [id number] [facility]
--- NOTE | 2023-05-10 14:07 | RAD REPORT ---
EXAM DESCRIPTION: Stephen Sanders (2 Views)05/10/2023 1:52 pm CLINICAL HISTORY: Cough COMPARISON: 2019 FINDINGS: The lungs appear clear of acute infiltrate. The heart is normal size IMPRESSION: No acute abnormalities displayed
[2023-05-10 14:08] LABS: SARS-CoV-2 Antigen Rapid Res Negative (Negative)
--- NOTE | 2023-05-10 16:11 | ER ---
Nurse's Notes [facility] Name: Kirsty Montaño Age: 57 yrs Sex: Female : 1965 Arrival Date: 05/10/2023 Time: 13:15 Bed DIS3 Private MD: Diagnosis: Acute upper respiratory infection, unspecified;Fever, unspecified;Cough Presentation: 05/10 13:28 Chief complaint: Patient states: Flu like symptoms onset last night. Pt reports cm10 low-grade fever, body aches and fever. Coronavirus screen: Vaccine status: Patient reports receiving the 2nd dose of the covid vaccine. Client denies travel out of the [place] in the last 14 days. Ebola Screen: Patient denies travel to an Ebola-affected area in the 21 days before illness onset. No symptoms or risks identified at this time. Initial Sepsis Screen: Does the patient meet any 2 criteria? No. Patient's initial sepsis screen is negative. Does the patient have a suspected source of infection? No. Patient's initial sepsis screen is negative. Risk Assessment: Do you want to hurt yourself or someone else? Patient reports no desire to harm self or others. Onset of symptoms was May 10, 2023. 13:28 Method Of Arrival: Ambulatory cm10 13:28 Acuity: ALYCIA 4 cm10 Triage Assessment: 13:30 General: Appears in no apparent distress. comfortable, Behavior is calm, cooperative. cm10 Pain: Complains of pain in Generalized body aches. EENT: No deficits noted. Reports nasal congestion. Neuro: No deficits noted. Level of Consciousness is awake, alert, obeys commands, Oriented to person, place, time, situation, Gait is steady, Reports headache. Cardiovascular: No deficits noted. Denies chest pain, shortness of breath. Respiratory: No deficits noted. Reports cough that is Airway is patent Respiratory effort is even, unlabored, Respiratory pattern is regular, symmetrical. GI: No deficits noted. No signs and/or symptoms were reported involving the gastrointestinal system. : No deficits noted. No signs and/or symptoms were reported regarding the genitourinary system. Derm: No deficits noted. No signs and/or symptoms reported regarding the dermatologic system. Skin is intact, Skin is pink, warm \T\ dry. Musculoskeletal: No deficits noted. No signs and/or symptoms reported regarding the musculoskeletal system. Range of motion: intact in all extremities. 13:33 EENT: Throat is reddened has patchy exudate. cm10 Historical: - Allergies: 13:29 No Known Allergies; cm10 - PMHx: 13:29 Hypertension; Diabetes - NIDDM; High Cholesterol; cm10 - PSHx: 13:29 Cholecystectomy; cm10 - Immunization history:: Adult Immunizations up to date. - Social history:: Smoking status: Patient denies any tobacco usage or history of. Screenin:31 [facility] ED Fall Risk Assessment (Adult) History of falling in the last 3 months, cm10 including since admission No falls in past 3 months (0 pts) Confusion or Disorientation No (0 pts) Intoxicated or Sedated No (0 pts) Impaired Gait No (0 pts) Mobility Assist Device Used No (0 pt) Altered Elimination No (0 pt) Score/Fall Risk Level 0 - 2 = Low Risk Oriented to surroundings, Maintained a safe environment, Hourly rounding (assess needs \T\ fall precautionary measures) done. Abuse screen: Denies threats or abuse. Denies injuries from another. Nutritional screening: No deficits noted. Tuberculosis screening: No symptoms or risk factors identified. Assessment: 15:45 Reassessment: Patient appears in no apparent distress at this time. Patient and/or hb family updated on plan of care and expected duration. Pain level reassessed. Patient is alert, oriented x 3, equal unlabored respirations, skin warm/dry/pink. Vital Signs: 13:28 BP 152 / 77; Pulse 113; Resp 18; Temp 99.1; Pulse Ox 99% on R/A; Weight 70.31 kg; cm10 Height 5 ft. 5 in. ; Pain 4/10; 13:28 Body Mass Index 25.79 (70.31 kg, 165.1 cm) cm10 13:28 Pain Scale: Adult cm10 ED Course: 13:22 Patient arrived in ED. ts1 13:29 Triage completed. cm10 13:30 Arm band placed on Patient placed in waiting room. cm10 13:31 Patient has correct armband on for positive identification. Provided Education on: ER cm10 process and procedures. . 13:35 Talib Castro MD is Attending Physician. dionne 13:40 Influenza Screen (a \T\ B) Sent. cm10 13:40 SARS RAPID Sent. cm10 13:40 Strep Sent. cm10 13:54 Chest Pa And Lat (2 Views) XRAY In Process Unspecified. EDMS 16:23 No provider procedures requiring assistance completed. Patient did not have IV access hb during this emergency room visit. Administered Medications: 15:16 Drug: AZITHromycin PO 500 mg PO once Route: PO; cm10 15:16 Drug: Ibuprofen PO 600 mg PO once Route: PO; cm10 Medication: 13:31 VIS not applicable for this client. cm10 Outcome: 16:10 Discharge ordered by . dionne 16:23 Discharged to home ambulatory, with significant other, 16:23 Condition: stable 16:23 Discharge instructions given to patient, significant other, Instructed on discharge instructions, follow up and referral plans. medication usage, Demonstrated understanding of instructions, follow-up care, medications, Prescriptions given X 3, 16:24 Patient left the ED. hb Signatures: Dispatcher [employer] EDMS Talib Castro MD MD cha Baxter, Heather, RN RN Fay Blair PAS PAS ts1 Valentina Jones, RN RN cm10
--- NOTE | 2023-05-10 16:11 | EDPHYS ---
Physician Documentation [facility] Name: Kirsty Montaño Age: 57 yrs Sex: Female : 1965 Arrival Date: 05/10/2023 Time: 13:15 Bed DIS3 Private MD: ED Physician Talib Castro HPI: 05/10 15:57 This 57 yrs old Female presents to ER via Ambulatory with complaints of Flu dionne Symptoms, Fever. 15:57 The patient reports fever, that was measured at 100 degrees Fahrenheit. Onset: The dionne symptoms/episode began/occurred 1 day(s) ago. Modifying factors: there are no obvious modifying factors. Associated signs and symptoms: Pertinent positives:. Severity of symptoms: At their worst the symptoms were mild in the emergency department the symptoms are unchanged. The patient has experienced similar episodes in the past, several times. Historical: - Allergies: 13:29 No Known Allergies; cm10 - PMHx: 13:29 Hypertension; Diabetes - NIDDM; High Cholesterol; cm10 - PSHx: 13:29 Cholecystectomy; cm10 - Immunization history:: Adult Immunizations up to date. - Social history:: Smoking status: Patient denies any tobacco usage or history of. ROS: 16:02 Eyes: Negative for injury, pain, redness, and discharge, ENT: Negative for injury, dionne pain, and discharge, Neck: Negative for injury, pain, and swelling, Abdomen/GI: Negative for abdominal pain, nausea, vomiting, diarrhea, and constipation, Back: Negative for injury and pain, : Negative for injury, bleeding, discharge, and swelling, MS/Extremity: Negative for injury and deformity, Skin: Negative for injury, rash, and discoloration, Neuro: Negative for headache, weakness, numbness, tingling, and seizure, Psych: Negative for depression, anxiety, suicide ideation, homicidal ideation, and hallucinations, Allergy/Immunology: Negative for hives, rash, and allergies, Endocrine: Negative for neck swelling, polydipsia, polyuria, polyphagia, and marked weight changes, Hematologic/Lymphatic: Negative for swollen nodes, abnormal bleeding, and unusual bruising, 16:02 Constitutional: Positive for body aches, chills, fatigue, fever, malaise, 16:02 Cardiovascular: Positive for palpitations, 16:02 Respiratory: Positive for cough, shortness of breath, on exertion. 16:02 MS/extremity: Negative for decreased range of motion, pain, swelling, Exam: 16:02 Constitutional: This is a well developed, well nourished patient who is awake, alert, dionne and in no acute distress. Head/Face: Normocephalic, atraumatic. Eyes: Pupils equal round and reactive to light, extra-ocular motions intact. Lids and lashes normal. Conjunctiva and sclera are non-icteric and not injected. Cornea within normal limits. Periorbital areas with no swelling, redness, or edema. ENT: Nares patent. No nasal discharge, no septal abnormalities noted. Tympanic membranes are normal and external auditory canals are clear. Oropharynx with no redness, swelling, or masses, exudates, or evidence of obstruction, uvula midline. Mucous membranes moist. Neck: Trachea midline, no thyromegaly or masses palpated, and no cervical lymphadenopathy. Supple, full range of motion without nuchal rigidity, or vertebral point tenderness. No Meningismus. Chest/axilla: Normal chest wall appearance and motion. Nontender with no deformity. No lesions are appreciated. Cardiovascular: Regular rate and rhythm with a normal S1 and S2. No gallops, murmurs, or rubs. Normal PMI, no JVD. No pulse deficits. Respiratory: Lungs have equal breath sounds bilaterally, clear to auscultation and percussion. No rales, rhonchi or wheezes noted. No increased work of breathing, no retractions or nasal flaring. Abdomen/GI: Soft, non-tender, with normal bowel sounds. No distension or tympany. No guarding or rebound. No evidence of tenderness throughout. Back: No spinal tenderness. No costovertebral tenderness. Full range of motion. Female : Normal external genitalia. Skin: Warm, dry with normal turgor. Normal color with no rashes, no lesions, and no evidence of cellulitis. MS/ Extremity: Pulses equal, no cyanosis. Neurovascular intact. Full, normal range of motion. Neuro: Awake and alert, GCS 15, oriented to person, place, time, and situation. Cranial nerves II-XII grossly intact. Motor strength 5/5 in all extremities. Sensory grossly intact. Cerebellar exam normal. Normal gait. Psych: Awake, alert, with orientation to person, place and time. Behavior, mood, and affect are within normal limits. 16:02 Musculoskeletal/extremity: DVT Exam: No signs of deep vein thrombosis. no pain, no swelling, no tenderness, negative Homans' sign noted on exam, no appreciated bluish discoloration, no erythema, no increased warmth, Vital Signs: 13:28 BP 152 / 77; Pulse 113; Resp 18; Temp 99.1; Pulse Ox 99% on R/A; Weight 70.31 kg; cm10 Height 5 ft. 5 in. ; Pain 4/10; 13:28 Body Mass Index 25.79 (70.31 kg, 165.1 cm) cm10 13:28 Pain Scale: Adult cm10 MDM: 13:35 Patient medically screened. [facility] 16:04 Antibiotic administration: The patient is discharged and will get outpatient [facility] antibiotics, Zithromax. Differential diagnosis: obstructed airway, tracheal injury, bronchitis, flu, URI, viral Infection, bacterial infection, URI, bronchitis, pneumonia UTI. Differential Diagnosis sepsis, flu. Data reviewed: vital signs, nurses notes, lab test result(s), radiologic studies, plain films. Consideration of Admission/Observation Escalation of care including admission/observation considered. I considered the following discharge prescriptions or medication management in the emergency department Medications were administered in the Emergency Department. See MAR. Independent interpretation of the following test(s) in the Emergency Department X-Ray: My interpretation is CHEST XAY. Test considered but Not performed: Labs: NO LABS. 05/10 13:37 Order name: Strep 10 05/10 13:37 Order name: SARS RAPID; Complete Time: 15:53 [facility] 05/10 13:37 Order name: Influenza Screen (a \T\ B); Complete Time: 15:53 10 05/10 13:39 Order name: SARS RAPID [facility] 05/10 14:11 Order name: Throat Culture EDNE 05/10 13:39 Order name: Chest Pa And Lat (2 Views) XRAY; Complete Time: 15:53 [facility] 05/10 13:39 Order name: PO challenge; Complete Time: 15:16 dionne Administered Medications: 15:16 Drug: AZITHromycin PO 500 mg PO once Route: PO; cm10 15:16 Drug: Ibuprofen PO 600 mg PO once Route: PO; cm10 Disposition Summary: 05/10/23 16:10 Discharge Ordered Notes: Location: Home [facility] Problem: new [facility] Symptoms: have improved dionne Condition: Stable dionne Diagnosis - Acute upper respiratory infection, unspecified dionne - Fever, unspecified dionne - Cough dionne Followup: dionne - With: Private Physician - When: 2 - 3 days - Reason: Recheck today's complaints, Continuance of care, Re-evaluation by your physician Discharge Instructions: - Discharge Summary Sheet dionne - Fever, Adult dionne - Upper Respiratory Infection, Adult dionne - Upper Respiratory Infection, Adult, [id number] dionne - Cough, Adult, [id number] dionne - Cough, Adult dionne Forms: - Medication Reconciliation Form dionne - Thank You Letter dionne - Antibiotic Education dionne - Prescription Opioid Use dionne - Patient Portal Instructions dionne - Leadership Thank You Letter dionne - Work release form hb Prescriptions: - Tessalon Perles 100 mg Oral capsule - take 2 capsule ORAL route every 8 hours As needed; 30 capsule; Refills: 0, dionne Product Selection Permitted - Medrol (Dante) 4 mg Oral Tablets, Dose Pack - take 1 tablet ORAL route as directed - follow package instructions; 1 packet; dionne Refills: 0, Product Selection Permitted - Zithromax 500 mg Oral tablet - take 1 tablet ORAL route once daily for 5 days; 5 tablet; Refills: 0, Product dionne Selection Permitted Signatures: 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
[2023-05-10 16:57] VITALS: BP 152/77; TEMP 99.1; O2SAT 99
== END ==
LOC: ER 13:15
DX: J06.9 Acute upper respiratory infection, unspecified (principal); R05.9 Cough, unspecified; Z11.52 Encounter for screening for COVID-19
CPT/HCPCS: 36415; 71046; 87070; 87081; 87804; 87811; 99283

== ENCOUNTER 2024-08-30 13:41 | Emergency (ER) | payer BC ==
--- OUTSIDE RECORDS SUMMARY | 2024-08-30 13:45 | XMS REPORT | Continuity of Care Document ---
Author Name Unknown Address [address] [place] [address] [facility] [place] Address 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 Name Role Phone Pcp, Patient Does Not Have A Primary Care Physic jaqueline [email or web address]_S Attending Clinician Unavaila ble Neo Chapman Attending Clinician NEO MAYER Attending Clinician Unavailable Unknown, Attending Attending Clinician Unavailab JONY Galvez Attending Clinician Unavailable Lab, Adc Fam Pob I Attending Clinician Unavailab KELSEY Saravia Attending Clinician Unavailable Eduar VEGA, Toney [place] Attending Clinician [email or web address]_S Admitting Clinician Unavaila ble Payers Payer Name Policy Type Policy Number Effective Date Expirati on Date Source [place] [id number] 2020 00:00:00 [facility] PPO [id number] 2019 00:00:00 Allergies, Adverse Reactions, Alerts Allergy Name Allergy Type Status Severity Reaction(s) Onset Date Inactive Date Treating Clinician Comments Source DULAGLUT RAJIV DRUG INGREDI Active N/V 09-28 00:00: [address] [facility] Dulaglut rajiv Propensi ty to adverse reaction s Active Nausea and/or Vomiting 09-28 00:00: 00 [facility] Social History Social Habit Start Date Stop Date Quantity Comments Source Tobacco use and exposure 2022-08-09 00:00:00 2022-08-09 00:00:00 Smokeless tobacco non-user [facility] Alcohol intake 2022-08-09 00:00:00 2022-08-09 00:00:00 Current non-drinker of alcohol (finding) [facility] Sex Ass[birth year] At 1965 00:00:00 1965 00:00:00 [facility] Smoking Status Start Date Stop Date Source Never smoked tobacco [facility] Medications Ordered Medication Name Filled Medication Name Start Date Stop Date Current Medication? Ordering Clinician Indication Dosage Frequency Signature (SIG) Comments Components Source levoFLOXaci n 750 mg tablet 08-09 00:00: 00 08-17 04:59 :00 No [id number] 750mg Take 1 tablet by mouth every 24 (twenty-fo ur) hours for 7 days. [facility] OZEMPIC 0.25 mg or 0.5 mg (2 mg/3 mL) PnIj 08-04 00:00: 00 Yes [facility] FARXIGA 10 mg tablet 06-10 00:00: 00 Yes [facility] ezetimibe 10 mg tablet 06-10 00:00: 00 Yes [facility] glimepiride 4 mg tablet 06-10 00:00: 00 Yes [facility] olmesartan 40 mg tablet 06-10 00:00: 00 Yes [facility] pravastatin 40 mg tablet 06-10 00:00: 00 Yes [facility] repaglinide 2 mg tablet 06-28 00:00: 00 Yes [facility] VICTOZA 3-ROCIO 0.6 mg/0.1 mL (18 mg/3 mL) injection 06-28 00:00: 00 Yes [facility] metformin ER 500 mg 24 hr tablet 09-28 00:00: 00 Yes [id number] 1000mg Take 2 tablets by mouth 2 (two) times daily with meals. [facility] losartan 50 mg tablet 09-23 00:00: 00 Yes [facility] atorvastati n 40 mg tablet 08-25 00:00: 00 Yes [facility] omeprazole 40 mg capsule 08-22 00:00: 00 Yes [facility] Vital Signs Vital Name Observation Time Observation Value Comments S archana Systolic blood pressure 2022-08-09 23:55:00 133 mm[Hg] [facility] Diastolic blood pressure 2022-08-09 23:55:00 81 mm[Hg] [facility] Heart rate 2022-08-09 23:54:00 74 /min [facility] Body temperature 2022-08-09 23:54:00 36.56 Cinthia [facility] Respiratory rate 2022-08-09 23:54:00 16 /min [facility] Body weight 2022-08-09 23:54:00 79.833 kg [facility] BMI 2022-08-09 23:54:00 30.21 kg/m2 [facility] Oxygen saturation in Arterial blood by Pulse oximetry 2022-08-09 23:54:00 97 /min [facility] Procedures Procedure Date / Time Performed Performing Clinicia n Source XR FOOT 3+ VW RIGHT 2022-08-10 00:10:00 Lizandro Mayer [facility] Encounters Start Date/Time End Date/Time Encounter Type Admission Type Attending Clinicians Care Facility Care Department Encounter ID Source 2023-06-10 00:00:00 2023-06-10 00:00:00 Outpatient GC_GCBZW_Ka diyala_S PRIV PRIV [id number] [facility] 2023-06-08 00:00:00 2023-06-08 00:00:00 Outpatient GC_GCBZW_Ka diyala_S PRIV PRIV [id number] [facility] 2023-03-03 00:00:00 2023-03-03 00:00:00 Outpatient GC_GCBZW_Ka diyala_S PRIV PRIV [id number] [facility] 2023-03-03 00:00:00 2023-03-03 00:00:00 Outpatient GC_GCBZW_Ka diyala_S PRIV PRIV [id number] [facility] 2023-02-10 00:00:00 2023-02-10 00:00:00 Outpatient GC_GCBZW_Ka diyala_S PRIV PRIV [id number] [facility] 2023-02-10 00:00:00 2023-02-10 00:00:00 Outpatient GC_GCBZW_Ka diyala_S PRIV PRIV [id number] [facility] 2023-01-02 00:00:00 2023-01-02 00:00:00 Outpatient GC_GCBZW_Ka diyala_S PRIV PRIV [id number] [facility] 2023-01-02 00:00:00 2023-01-02 00:00:00 Outpatient GC_GCBZW_Ka diyala_S PRIV PRIV [id number] [facility] 2022-12-31 00:00:00 2022-12-31 00:00:00 Outpatient GC_GCBZW_Ka diyala_S PRIV PRIV [id number] [facility] 2022-12-19 00:00:00 2022-12-19 00:00:00 Outpatient GC_GCBZW_Ka diyala_S PRIV PRIV [id number] [facility] 2022-11-21 00:00:00 2022-11-21 00:00:00 Outpatient GC_GCBZW_Ka diyala_S PRIV PRIV [id number] [facility] 2022-11-13 00:00:00 2022-11-13 00:00:00 Outpatient GC_GCBZW_Ka diyala_S PRIV PRIV [id number] [facility] 2022-11-13 00:00:00 2022-11-13 00:00:00 Outpatient GC_GCBZW_Ka diyala_S PRIV PRIV [id number] [facility] 2022-08-09 19:02:10 2022-08-09 23:59:00 Hospital Encounter Neo Mayer [facility] [id number] [facility] 2022-08-09 18:40:00 2022-08-09 19:12:21 Outpatient R NEO MAYER [facility] [id number] [facility] 2022-08-09 18:40:00 2022-08-09 19:12:21 Urgent Care Neo Mayer Unknown, Attending [facility] [id number] [facility] 2020-09-05 14:40:00 2020-09-05 14:40:00 Outpatient R VIVIENJONY [facility] [id number] [facility] 2020-07-27 18:40:00 2020-07-27 18:40:00 Outpatient R [facility] [id number] [facility] 2020-07-22 08:40:00 2020-07-22 08:40:00 Outpatient [facility] [id number] [facility] 2020-06-28 10:30:55 2020-06-28 10:50:55 Laboratory Only Lab, Adc Fam Pob I [facility] Profess[facility] nal Office Building One [id number] [id number] 2020-06-28 10:20:00 2020-06-28 10:20:00 Outpatient R VIVIEN, JONY [facility] [id number] [facility] 2020-06-24 08:30:00 2020-06-24 08:30:00 Outpatient R KELSEY SHOOK [facility] [id number] [facility] 2020-05-14 00:00:00 2020-05-14 00:00:00 Letter (Out) Toney Witt [facility] .114 [id number] 2020-05-11 19:25:50 2020-05-11 19:45:50 Laboratory Only Lab, Adc [facility] Office Building One .114 [id number] [id number] 2020-05-11 19:20:00 2020-05-11 19:20:00 Outpatient R [facility] [id number] [facility] 2020-02-21 10:33:38 2020-02-21 10:53:38 Laboratory Only Lab, Adc [facility] Office Building One .114 [id number] 2020-02-21 10:40:00 2020-02-21 10:40:00 Outpatient R [facility] [id number] [facility]
[2024-08-30] MEDS ORDERED: NA CHLORIDE 0.9% 500 ML ONE (14:22)
[2024-08-30 14:28] LABS: Absolute Basophils 0.1 K/uL (0-0.5); Absolute Eosinophils 0.1 K/uL (0-0.5); Absolute Lymphocytes (CBC) 2.8 K/uL (0.7-4.9); Absolute Monocytes 0.6 K/uL (0.1-1.3); Absolute Neutrophil 5.3 K/uL (1.8-8.0); Basophils % 0.7 % (0-1.3); Eosinophils % 0.7 % (0-4.4); Hematocrit 39.9 % (36.0-45.0); Lymphocytes % 31.2 % (15.3-44.8); MCH 31.4 pg (27.0-35.0); MCHC 35.2 g/dL (32.0-36.0); MCV 89.1 fL (80-100); MPV 8.2 fL (7.6-11.3); Monocytes % 7.3 % (3.3-12.3); Neutrophils % 60.1 % (41.7-73.7); Platelets 246 thou/uL (152-406); RBC Red Blood Cell Count 4.48 M/uL (3.86-4.86); Red Cell Distribution Width 13.8 % (12.1-15.2)
[2024-08-30 14:32] LABS: PT Prothrombin Time 10.3 SECONDS (10-13.0); Protime INR 0.9
[2024-08-30 14:49] LABS: ALT/SGPT 22 U/L (13-56); AST/SGOT 17 U/L (15-37); Albumin 3.8 g/dL (3.4-5.0); Albumin/Globulin Ratio 1.1 (1.1-1.8); Alkaline Phosphatase 75 U/L (45-117); BUN Blood Urea Nitrogen 16 mg/dL (7-18); Bicarbonate 24 mEq/L (21-32); Bilirubin Direct 0.3 mg/dL (0-0.2); Bilirubin Total 1.3 mg/dL (0.2-1.0); Globulin 3.5 g/dL (2.3-3.5); Glomerular Filtration Rate 100 ml/min (=/>90); Glucose Level 114 mg/dL (74-106); Lipase 35 U/L (13-75); Magnesium 1.9 mg/dL (1.6-2.4); NT PRO-BNP 114 pg/mL (<125); Protein, Total 7.3 g/dL (6.4-8.2); Sodium Level 139 mEq/L (136-145)
[2024-08-30 14:50] LABS: Troponin High Sensitivity < 3.0 pg/mL (<58.9)
--- NOTE | 2024-08-30 14:59 | RAD REPORT ---
EXAMINATION: ONE VIEW CHEST XR CLINICAL INDICATION: Female, 59 years old.,COUGH TECHNIQUE: Frontal chest projection is submitted. Examination is limited by patient positioning and t echnique. COMPARISON: 05/10/2023 FINDINGS: The lungs are well inflated and clear. No pneumothorax or sizable effusion. The heart is normal in s ize. Mediastinal contours are unremarkable. IMPRESSION: No acute intrathoracic abnormalities.
--- NOTE | 2024-08-30 15:51 | RAD REPORT ---
EXAM: CT Head Brain Wo Cont HISTORY: SYNCOPE COMPARISON: None available TECHNIQUE: Multiple contiguous axial images were obtained for a CT of the brain without contrast. Sag ittal and coronal reformats were performed. One or more of the following dose reduction techniques were used: Automated exposure control, adjus tment of the mA and kV according to patient size, and iterative reconstruction. Unless otherwise specified, incidental findings do not require dedicated imaging follow-up. FINDINGS: No evidence of hydrocephalus, intracranial hemorrhage, or extra-axial fluid collection. Punctate focu s of calcification along the right frontal horn ependymal surface, nonspecific. Mild brain atrophy with mild periventricular and deep white matter chronic microvascular ischemic ch anges present. The calvarium is intact. The visualized paranasal sinuses and mastoid air cells are essentially clear . IMPRESSION: No evidence of acute intracranial abnormality.
[2024-08-30 16:50] LABS: Specific Gravity 1.028 (1.005-1.030); Urine Bilirubin NEGATIVE (Negative); Urine Blood Negative (Negative); Urine Clarity Clear (Clear); Urine Color Colorless (Yellow); Urine Glucose 4+ (Over) (Negative); Urine Ketones TRACE (Negative); Urine Microscopic Reflex YN NO UMIC; Urine Nitrite NEGATIVE (Negative); Urine Protein NEGATIVE (Negative); Urine Urobilinogen Normal (Normal); Urine pH 6.5 (5.0-7.0)
[2024-08-30] MEDS ORDERED: ASPIRIN 81 MG CHEWABLE TABLET ONE ×2 (17:27→17:39)
--- NOTE | 2024-08-30 17:32 | EDPHYS ---
Physician Documentation [facility] Name: Kirsty Montaño Age: 59 yrs Sex: Female : 1965 Arrival Date: 08/30/2024 Time: 13:41 Bed 13 Private MD: ED Physician Talib Castro HPI: 08/30 17:23 This 59 yrs old Female presents to ER via Ambulatory with complaints of dionne Nausea, Dizziness, Near Syncope. 17:23 The patient presents to the emergency department with nausea, that is mild. Onset: The dionne symptoms/episode began/occurred just prior to arrival, this morning. Possible causes: unknown. The symptoms are aggravated by nothing. The symptoms are alleviated by nothing. Historical: - Allergies: 13:49 No Known Allergies; ll1 - PMHx: 13:49 Diabetes - NIDDM; High Cholesterol; Hypertension; ll1 - PSHx: 13:49 Cholecystectomy; hysterectomy (Cholecystectomy); ll1 - Immunization history:: Adult Immunizations up to date. - Infectious Disease History:: Denies. - Social history:: Smoking status: Patient denies any tobacco usage or history of. ROS: 17:24 Constitutional: Negative for fever, chills, and weight loss, Eyes: Negative for injury, dionne pain, redness, and discharge, ENT: Negative for injury, pain, and discharge, Neck: Negative for injury, pain, and swelling, Cardiovascular: Negative for chest pain, palpitations, and edema, Respiratory: Negative for shortness of breath, cough, wheezing, and pleuritic chest pain, Abdomen/GI: Negative for abdominal pain, nausea, vomiting, diarrhea, and constipation, Back: Negative for injury and pain, : Negative for injury, bleeding, discharge, and swelling, MS/Extremity: Negative for injury and deformity, Skin: Negative for injury, rash, and discoloration, Neuro: Negative for headache, weakness, numbness, tingling, and seizure, Psych: Negative for depression, anxiety, suicide ideation, homicidal ideation, and hallucinations, Allergy/Immunology: Negative for hives, rash, and allergies, Endocrine: Negative for neck swelling, polydipsia, polyuria, polyphagia, and marked weight changes, Hematologic/Lymphatic: Negative for swollen nodes, abnormal bleeding, and unusual bruising, 17:24 Cardiovascular: Negative for chest pain, edema, orthopnea, palpitations, paroxysmal nocturnal dyspnea, Exam: 17:25 Constitutional: This is a well developed, well nourished patient who is awake, alert, dionne and in no acute distress. Head/Face: Normocephalic, atraumatic. Eyes: Pupils equal round and reactive to light, extra-ocular motions intact. Lids and lashes normal. Conjunctiva and sclera are non-icteric and not injected. Cornea within normal limits. Periorbital areas with no swelling, redness, or edema. ENT: Nares patent. No nasal discharge, no septal abnormalities noted. Tympanic membranes are normal and external auditory canals are clear. Oropharynx with no redness, swelling, or masses, exudates, or evidence of obstruction, uvula midline. Mucous membranes moist. Neck: Trachea midline, no thyromegaly or masses palpated, and no cervical lymphadenopathy. Supple, full range of motion without nuchal rigidity, or vertebral point tenderness. No Meningismus. Chest/axilla: Normal chest wall appearance and motion. Nontender with no deformity. No lesions are appreciated. Cardiovascular: Regular rate and rhythm with a normal S1 and S2. No gallops, murmurs, or rubs. Normal PMI, no JVD. No pulse deficits. Respiratory: Lungs have equal breath sounds bilaterally, clear to auscultation and percussion. No rales, rhonchi or wheezes noted. No increased work of breathing, no retractions or nasal flaring. Abdomen/GI: Soft, non-tender, with normal bowel sounds. No distension or tympany. No guarding or rebound. No evidence of tenderness throughout. Back: No spinal tenderness. No costovertebral tenderness. Full range of motion. Skin: Warm, dry with normal turgor. Normal color with no rashes, no lesions, and no evidence of cellulitis. MS/ Extremity: Pulses equal, no cyanosis. Neurovascular intact. Full, normal range of motion., bilateral aka Neuro: Awake and alert, GCS 15, oriented to person, place, time, and situation. Cranial nerves II-XII grossly intact. Motor strength 5/5 in all extremities. Sensory grossly intact. Cerebellar exam normal. Normal gait. Psych: Awake, alert, with orientation to person, place and time. Behavior, mood, and affect are within normal limits. 17:25 ECG was reviewed by the Attending Physician. 17:25 Musculoskeletal/extremity: ROM: no acute changes, Circulation is intact in all extremities. Sensation intact. Compartment Syndrome exam of affected extremity: is normal. Joints: All joints appear normal with full range of motion. Weight bearing: able to fully bear weight, DVT Exam: No signs of deep vein thrombosis. no pain, no swelling, no tenderness, negative Homans' sign noted on exam, no appreciated bluish discoloration, no erythema, no increased warmth, 17:25 Neuro: Orientation: is normal, appropriate for stated age, no acute changes, Mentation: is normal, appropriate for stated age, no acute changes, Memory: is normal, appropriate for stated age, no acute changes, Cranial nerves: grossly normal, is grossly normal based on the patient's age, Cerebellar function: is grossly normal, is grossly normal based on the patient's age, no acute changes, Motor: is normal, Sensation: is normal, no obvious gross deficits, appropriate Gait: not applicable Deep tendon reflexes are 2+ (normal) in the bilateral brachioradialis, bicep, tricep and patellar and Achilles tendons, Babinski testing is normal, seizure activity, is not displayed by the patient, Abnormal movements: there are no abnormal movements, Vital Signs: 13:49 BP 161 / 75; Pulse 103; Resp 18; Temp 98; Pulse Ox 99% ; Weight 71.21 kg; Height 5 ft. ll1 4 in. ; Pain 0/10; 16:00 BP 138 / 69; Pulse 83; Resp 16; Pulse Ox 98% on R/A; db 17:00 BP 132 / 71; Pulse 78; Resp 20; Pulse Ox 98% ; db 13:49 Body Mass Index 26.95 (71.21 kg, 162.56 cm) ll1 13:49 Pain Scale: Adult ll1 MDM: 13:49 Medical Screening Exam initiated dionne 17:28 Differential diagnosis: Nonspecific abd pain, gastritis, cholecystitis, pancreatitis, dionne diverticulitis, viral gastroenteritis, gastroenteritis. Data reviewed: vital signs, nurses notes, lab test result(s), EKG, radiologic studies, CT scan, plain films. Consideration of Admission/Observation Patient was admitted/placed on observation. Escalation of care including admission/observation considered. I considered the following discharge prescriptions or medication management in the emergency department Medications were administered in the Emergency Department. See MAR. Independent interpretation of the following test(s) in the Emergency Department EKG: See my EKG interpretation above. Test considered but Not performed: Ultrasound no 2 d echo. Historians other than the Patient: Spouse/Significant Other: well informed. Care significantly affected by the following chronic conditions: Diabetes, Hypertension, Obesity. Counseling: I had a detailed discussion with the patient and/or guardian regarding the historical points, exam findings, and any diagnostic results supporting the discharge/admit diagnosis, lab results, radiology results, the need for outpatient follow up, for definitive care, a family practitioner. 08/30 13:51 Order name: Basic Metabolic Panel; Complete Time: 14:56 [facility] 08/30 13:51 Order name: CBC with Diff; Complete Time: 14:56 [facility] 08/30 13:51 Order name: LFT's; Complete Time: 14:56 [facility] 08/30 13:51 Order name: Magnesium; Complete Time: 14:56 [facility] 08/30 13:51 Order name: NT PRO-BNP; Complete Time: 14:56 [facility] 08/30 13:51 Order name: PT-INR; Complete Time: 14:56 [facility] 08/30 13:51 Order name: Troponin HS; Complete Time: 14:56 [facility] 08/30 13:51 Order name: Lipase; Complete Time: 14:56 [facility] 08/30 13:51 Order name: UA Rfx Balta Cult if indicated; Complete Time: 17:19 [facility] 08/30 13:51 Order name: XRAY Chest (1 view); Complete Time: 17:19 [facility] 08/30 13:51 Order name: CT Head Brain wo Cont; Complete Time: 17:19 [facility] 08/30 13:51 Order name: EKG; Complete Time: 13:52 [facility] 08/30 13:51 Order name: Cardiac monitoring; Complete Time: 17:07 [facility] 08/30 13:51 Order name: EKG - Nurse/Tech; Complete Time: 17:07 [facility] 08/30 13:51 Order name: IV Saline Lock; Complete Time: 14:21 [facility] 08/30 13:51 Order name: Labs collected and sent; Complete Time: 14:21 [facility] 08/30 13:51 Order name: O2 Per Protocol; Complete Time: 17:07 [facility] 08/30 13:51 Order name: O2 Sat Monitoring; Complete Time: 17:07 [facility] EC:25 Rate is 75 beats/min. Rhythm is regular. QRS [place] is Normal. NH interval is normal. QRS dionne interval is normal. QT interval is normal. No Q waves. T waves are Normal. No ST changes noted. Clinical impression: Normal ECG and No evidence of ischemia. Interpreted by me. Reviewed by me. Administered Medications: 14:26 Drug: NS 0.9% IV 500 ml 500 ml IV at 1 bolus once; to be given as a bolus over 30 hb minutes Volume: 500 ml; Route: IV; Rate: 1 bolus; Site: right antecubital; 17:56 Follow up: Response: No adverse reaction; IV Status: Completed infusion; IV Intake: db 500ml 17:32 Drug: Aspirin PO Chewable Tablet 162 mg PO once Route: PO; db 17:57 Follow up: Response: No adverse reaction db 17:41 Drug: Meclizine PO 25 mg PO once Route: PO; db 17:57 Follow up: Response: No adverse reaction db Disposition Summary: 08/30/24 17:31 Discharge Ordered Notes: Location: Home dionne Problem: new dionne Symptoms: have improved dionne Condition: Stable dionne Diagnosis - Nausea dionne - Dizziness and giddiness dionne Followup: dionne - With: Private Physician - When: 2 - 3 days - Reason: Recheck today's complaints, Continuance of care, Re-evaluation by your physician Discharge Instructions: - Discharge Summary Sheet dionne - Benign Positional Vertigo dionne - Dizziness dionne - Nausea, Adult dionne - Aspirin and Your Heart dionne Forms: - Medication Reconciliation Form dionne - Antibiotic Education dionne - Prescription Opioid Use dionne - Patient Portal Instructions dionne - Leadership Thank You Letter dionne - Work release form db - Family Work Release db Prescriptions: - ondansetron 8 mg Oral Tablet,disintegrating - take 1 tablet ORAL route every 8 hours as needed for nausea and vomiting; 20 dionne tablet; Refills: 0, Product Selection Permitted - Meclizine 25 mg Oral Tablet - take 1 tablet ORAL route every 8 hours As needed; 30 tablet; Refills: 0, dionne Product Selection Permitted Signatures: Dispatcher [employer] Talib Ashford MD MD cha Baxter, Heather RN RN [place] RN RN ll1 Mariah Leiva RN RN db
--- NOTE | 2024-08-30 17:32 | ER ---
Nurse's Notes [facility] Name: Kirsty Montaño Age: 59 yrs Sex: Female : 1965 Arrival Date: 08/30/2024 Time: 13:41 Bed 13 Private MD: Diagnosis: Nausea;Dizziness and giddiness Presentation: 08/30 13:49 Chief complaint: Patient states: Ate lunch and was washing her hands, suddenly felt ll1 weak, nausea, fast SARKAR, and near syncope. Coronavirus screen: Client denies travel out of the [place] in the last 14 days. At this time, the client does not indicate any symptoms associated with coronavirus-19. Ebola Screen: Patient denies travel to an Ebola-affected area in the 21 days before illness onset. Initial Sepsis Screen: Does the patient meet any 2 criteria? No. Patient's initial sepsis screen is negative. Does the patient have a suspected source of infection? No. Patient's initial sepsis screen is negative. Risk Assessment: Do you want to hurt yourself or someone else? Patient reports no desire to harm self or others. Onset of symptoms was August 30, 2024. 13:49 Method Of Arrival: Ambulatory ll1 13:49 Acuity: ALYCIA 3 ll1 Triage Assessment: 13:49 General: Appears uncomfortable, Behavior is calm, cooperative, appropriate for age, ll1 Reports fatigue for. Pain: Denies pain. Neuro: Reports a syncopal episode weakness. GI: Reports nausea. Historical: - Allergies: 13:49 No Known Allergies; ll1 - PMHx: 13:49 Diabetes - NIDDM; High Cholesterol; Hypertension; ll1 - PSHx: 13:49 Cholecystectomy; hysterectomy (Cholecystectomy); ll1 - Immunization history:: Adult Immunizations up to date. - Infectious Disease History:: Denies. - Social history:: Smoking status: Patient denies any tobacco usage or history of. Screenin:08 [facility] ED Fall Risk Assessment (Adult) History of falling in the last 3 months, db including since admission No falls in past 3 months (0 pts) Confusion or Disorientation No (0 pts) Intoxicated or Sedated No (0 pts) Impaired Gait No (0 pts) Mobility Assist Device Used No (0 pt) Altered Elimination No (0 pt) Score/Fall Risk Level 0 - 2 = Low Risk Oriented to surroundings, Maintained a safe environment. Abuse screen: Denies threats or abuse. Denies injuries from another. Nutritional screening: No deficits noted. Tuberculosis screening: No symptoms or risk factors identified. Assessment: 15:16 Reassessment: Patient and/or family updated on plan of care and expected duration. Pain ll1 level reassessed. 17:08 Reassessment: Patient appears in no apparent distress at this time. Patient and/or db family updated on plan of care and expected duration. Pain level reassessed. Patient is alert, oriented x 3, equal unlabored respirations, skin warm/dry/pink. Patient states symptoms have improved. GI: Abdomen is non-distended. 17:55 Reassessment: Patient appears in no apparent distress at this time. Patient and/or db family updated on plan of care and expected duration. Pain level reassessed. Patient is alert, oriented x 3, equal unlabored respirations, skin warm/dry/pink. Vital Signs: 13:49 BP 161 / 75; Pulse 103; Resp 18; Temp 98; Pulse Ox 99% ; Weight 71.21 kg; Height 5 ft. ll1 4 in. ; Pain 0/10; 16:00 BP 138 / 69; Pulse 83; Resp 16; Pulse Ox 98% on R/A; db 17:00 BP 132 / 71; Pulse 78; Resp 20; Pulse Ox 98% ; db 13:49 Body Mass Index 26.95 (71.21 kg, 162.56 cm) ll1 13:49 Pain Scale: Adult ll1 ED Course: 13:44 Patient arrived in ED. im 13:49 Talib Castro MD is Attending Physician. dionne 13:50 Triage completed. ll1 14:05 XRAY Chest (1 view) In Process Unspecified. EDMS 14:09 CT Head Brain wo Cont In Process Unspecified. EDMS 14:21 CBC with Diff Sent. hb 14:21 Basic Metabolic Panel Sent. hb 14:21 LFT's Sent. hb 14:21 Magnesium Sent. hb 14:21 NT PRO-BNP Sent. hb 14:21 PT-INR Sent. hb 14:21 Troponin HS Sent. hb 14:21 Initial lab(s) drawn, by me, sent to lab. Inserted saline lock: 20 gauge in right hb antecubital area, using aseptic technique. Blood collected. Flushed with 10 mL NS. 14:26 Lipase Sent. hb 15:16 Arm band placed on Patient placed in an exam room, on a stretcher. ll1 15:40 Mariah Leiva, RN is Primary Nurse. db 17:08 Patient has correct armband on for positive identification. Bed in low position. Call db light in reach. Side rails up X 1. Client placed on continuous cardiac and pulse oximetry monitoring. NIBP monitoring applied. vendor representatives on. Pulse ox on. NIBP on. Warm blanket given. Pillow given. 17:55 No provider procedures requiring assistance completed. IV discontinued, intact, db bleeding controlled, No redness/swelling at site. 17:55 Provided Education on: DISCHARGE AND FOLLOWUP. db Administered Medications: 14:26 Drug: NS 0.9% IV 500 ml 500 ml IV at 1 bolus once; to be given as a bolus over 30 hb minutes Volume: 500 ml; Route: IV; Rate: 1 bolus; Site: right antecubital; 17:56 Follow up: Response: No adverse reaction; IV Status: Completed infusion; IV Intake: db 500ml 17:32 Drug: Aspirin PO Chewable Tablet 162 mg PO once Route: PO; db 17:57 Follow up: Response: No adverse reaction db 17:41 Drug: Meclizine PO 25 mg PO once Route: PO; db 17:57 Follow up: Response: No adverse reaction db Medication: 17:08 VIS not applicable for this client. db Intake: 17:56 IV: 500ml; Total: 500ml. db Outcome: 17:31 Discharge ordered by . dionne 17:55 Discharged to home ambulatory, with family, db 17:55 Condition: stable 17:55 Discharge instructions given to patient, Instructed on discharge instructions, follow up and referral plans. Prescriptions given X 2, 17:56 Patient left the ED. db Signatures: Dispatcher [employer] Talib Ashford MD MD cha Baxter, Heather, RN El [place] RN RN ll1 Mariah Leiva, AKUA RN Meghna Anaya
[2024-08-30] MEDS ORDERED: MECLIZINE HCL 12.5 MG TAB ONE (17:39)
[2024-08-30 23:02] VITALS: TEMP 98
[2024-08-30 23:03] VITALS: O2SAT 98
[2024-08-30 23:05] VITALS: BP 132/71
--- NOTE | 2024-09-01 11:47 | EKG ---
Test Date: 2024-08-30 Test Time: 15:58:52 Weight Loss Counselor: SAÚL MEASUREMENT RESULTS: Intervals: Rate: 75 NM: 168 QRSD: 82 QT: 412 QTc: 460 Amity: P: 52 NM: 168 QRS: 41 T: 44 INTERPRETIVE STATEMENTS: Normal sinus rhythm Normal ECG Compared to ECG 04/30/2019 18:18:07 No significant changes Electronically Signed On 09-01-24 11:43:03 CDT by Ankit Suresh
== END 2024-08-30 17:56 | disposition home or self-care (01) ==
LOC: ER 13:41
DX: R11.0 Nausea (principal); R42 Dizziness and giddiness; R55 Syncope and collapse
CPT/HCPCS: 96361; 93005; 85025; 80048; 36415; 83735; 85610; 80076; 81003; 84484; 83690; 83880; 70450; 71045; 96360; 99285; J8597; J7040